=== PATIENT | male | born 1975 | race Caucasian/White ===

== ENCOUNTER 2022-07-07 13:46 | Observation (INO) ==
[2022-07-07] MEDS ORDERED: SODIUM CHLORIDE 0.9% 1000ML 1,000 ML IV ONE ×2 (13:54→19:42)
[2022-07-07] MEDS ORDERED: SODIUM CHLORIDE 0.9% 1000ML 500 ML IV ONE (13:55)
[2022-07-07 14:41] LABS: Hematocrit (blood only) 39.4 % (40.1-51.0); Hemoglobin 13.4 g/dl (14.0-18.0); Mean Corpuscular Hemoglobin 35.2 pg (25.0-34.0); Mean Corpuscular Volume 103.4 fL (80.0-100.0); Mean Platelet Volume 10.6 fL (9.4-12.4); Platelet Count 275 K/uL (130-400); RDW Coefficient of Variation 12.8 % (11.5-14.5); RDW Standard Deviation 48.4 fL (36.4-46.3); Red Blood Count 3.81 M/uL (4.63-6.08); White Blood Count 7.34 K/ul (4.8-10.8)
[2022-07-07 15:06] LABS: Albumin Globulin Ratio 1.2 (0.9-2); Albumin Level 4.2 gm/dl (3.4-5.0); BUN Creatinine Ratio 12.2 (10-20); Bilirubin,Total 0.4 mg/dl (0.2-1.0); Calcium 9.4 mg/dl (8.5-10.1); Creatinine Clr Calc Pharmacy 110.4 ml/min; Est GFR (African American) 105.2 ml/min; Est GFR (Non-African American) 90.8 ml/min; Globulin 3.4 gm/dl (2.5-4.0); Potassium 4.5 mmol/L (3.5-5.1); Total Protein 7.6 gm/dl (6.0-8.3)
--- NOTE | 2022-07-07 15:19 | Emergency Department Note ---
Impression & Plan Abdominal pain, Transaminitis ED Provider Note NAME: ZEB JOHN AGE: 47 SEX: M : 1975 ARRIVES VIA: Walk-In INFORMANT: Patient ED PROVIDER(S): Harrison Liriano DO CHIEF COMPLAINT: abdominal pain HPI: Patient is a 39-year-old male who is an alcoholic that drinks daily for the past 30 years. Patient has been at [facility] for about 4 days ago. He admits to right upper quadrant pain that has been present for the past 2 weeks. It has been having swelling of his belly for the past 7 days or even longer. He has been having some shortness of breath as well with up moving around. Denies any nausea or vomiting. No dysuria, urgency, or frequency. No other exacerbating or remitting factors. ROS: See above HPI for pertinent positives & negatives. A total of 10 systems reviewed and were otherwise negative. PAST MEDICAL HISTORY:See Below PAST SURGICAL HISTORY:See Below FAMILY HISTORY:See Below SOCIAL HISTORY:See Below HOME MEDICATIONS:See Below ALLERGIES:See Below VITALS:See Below PHYSICAL EXAMINATION: GENERAL: Sitting up in bed, alert, chronically ill-appearing, disheveled EYE EXAM: normal conjunctiva. OROPHARYNX:mucous membranes are moist NECK: supple, no nuchal rigidity, no adenopathy, non-tender LUNGS: Clear to auscultation. Normal chest wall mechanics HEART: no murmurs, S1 normal and S2 normal ABDOMEN: abdomen soft, acutely TTP in right upper quadrant, distended abdomen, normo-active bowel sounds, no masses, no rebound or guarding. UPPER EXTREMITIES: upper extremities are grossly normal. LOWER EXTREMITIES: No pitting edema. NEURO EXAM: Normal sensorium, cranial nerves II-XII grossly intact, normal speech, no gross weakness of arms, no gross weakness of legs. MEDICAL DECISION MAKING: Patient is a 47-year-old male who presents ER for above-stated complaint. IV was established blood was obtained. Labs show no significant leukocytosis. No anemia. D-dimer was negative. BMP was unremarkable. T bili was normal. Mild transaminitis. Troponin was negative. Lipase was unremarkable. COVID was negative. He is acutely tender to palpation. CT abdomen pelvis shows prominence of the gallbladder wall and pericholecystic edema. Patient was given IV antibiotics. He was given dose of IV morphine. He was updated bedside. Discussed with general surgery Dr. Mariano brandt who saw and evaluated the patient at bedside. There did not 100% sure that this is his gallbladder and consequently recommended admission to medicine. Discussed with the hospitalist Dr. Foreign Saunders for admission and he will be further worked up from general surgery and the hospitalist service. Triage Nursing notes reviewed. Limited review of prior medical records performed Vital Signs: reviewed and remarkable for HTN Differential diagnosis: Differential diagnoses includes but is not limited to gastritis, peptic ulcer disease, GERD, gallbladder disease, pancreatitis, small bowel obstruction, acute coronary syndrome, pericarditis, ischemic bowel, irritable bowel disease, irritable bowel syndrome, appendicitis, diverticulitis, malignancy, hernia, ur inary tract infection, torsion, perforation, trauma, infectious. ER treatment provided: See below Diagnostics interpreted by me: ECG: none Cardiac Monitoring: An order was placed for continuous cardiac monitoring. The monitor shows a rate of 92 with sinus rhythm. Laboratory studies: As stated above and show below. Imaging studies: CT abdomen pelvis as described above Consultation(s): Patient was seen evaluated by general surgery and has described above Discussed Dr. Saunders for admission and further work-up as general surgery will follow along Procedures: none Critical Care: None Past Med/Surg History Social History Smoking Status: Current every day smoker Feels Safe at Home: Yes Allergies Allergies Allergy/AdvReac Type Severity Reaction Status Date / Time No Known Allergies Allergy Unverified 07/07/22 19:07 Home Meds Home Medications Medication Instructions Recorded Confirmed cyanocobalamin (vitamin B-12) 1,000 mcg PO DAILY 07/07/22 07/07/22 1,000 mcg tablet (Vitamin B-12) diazepam 5 mg tablet (Valium) 5 mg PO .DAILY ON 07/08/22 07/07/22 07/07/22 diazepam 5 mg tablet (Valium) 5 mg PO BID 07/07/22 07/07/22 folic acid 1 mg tablet 1 mg PO DAILY 07/07/22 07/07/22 food supplemt, lactose-reduced 1 ea PO DAILY 07/07/22 07/07/22 (Ensure oral liquid) multivitamin 1 tab PO DAILY 07/07/22 07/07/22 thiamine HCl (vitamin B1) 100 mg 100 mg PO DAILY 07/07/22 07/07/22 tablet Results & Data (ED) Vital Signs Vital Signs - 24 hr 07/07/22 13:51 07/07/22 14:59 07/07/22 18:32 Temperature 36.9 C Temperature Source Oral Pulse Rate 79 Pulse Rate [Left Finger] 72 98 H Pulse Rhythm Regular Pulse Rhythm [Left Finger] Regular Pulse Strength Normal Pulse Strength [Left Finger] Normal Respiratory Rate 16 20 20 Respiratory Effort / Characteristics Non-Labored Spontaneous Non-Labored Spontaneous Respiratory Depth Normal Normal Normal Respiratory Pattern Regular Regular Blood Pressure 161/102 H Blood Pressure [Right Arm] 126/92 127/82 Blood Pressure Mean 121 Blood Pressure Mean [Right Arm] 103 97 Blood Pressure Position Sitting Blood Pressure Position [Right Arm] Sitting Pulse Oximetry 97 97 100 Oxygen Delivery Method Room Air Room Air Room Air Sepsis Recent Fever Within 48 Hours No Sepsis New/Unexplained Change in Mental Status No Sepsis Action Taken by Nursing No Action Required Laboratory Data Result diagrams: 07/07/22 14:26 07/07/22 14:26 Lab Results 07/07/22 07/07/22 07/07/22 Range/Units 14:26 14:26 14:26 WBC 7.34 (4.8-10.8) K/ul RBC 3.81 L (4.63-6.08) M/uL Hgb 13.4 L (14.0-18.0) g/dl Hct 39.4 L (40.1-51.0) % MCV 103.4 H (80.0-100.0) fL MCH 35.2 H (25.0-34.0) pg MCHC 34.0 (32.0-36.0) g/dL RDW Std Deviation 48.4 H (36.4-46.3) fL RDW Coeff of Robby 12.8 (11.5-14.5) % Plt Count 275 (130-400) K/uL MPV 10.6 (9.4-12.4) fL Immature Gran % (Auto) 0.3 % Neut % (Auto) 55.1 % Lymph % (Auto) 32.3 % [place] % (Auto) 8.2 % Eos % (Auto) 2.6 % Baso % (Auto) 1.5 % Neut # (Auto) 4.05 (1.4-6.5) K/uL Lymph # (Auto) 2.37 (1.2-3.4) K/uL [place] # (Auto) 0.60 (0.24-0.82) K/uL Eos # (Auto) 0.19 (0-0.50) K/uL Baso # (Auto) 0.11 (0-0.2) K/uL Immature Gran # (Auto) 0.02 (0.00-0.02) K/uL PT (9.0-12.0) Seconds INR (0.9-1.1) D-Dimer (0-500) ug/L FEU Sodium 138 (136-145) mmol/L Potassium 4.5 (3.5-5.1) mmol/L Chloride 106 (98-107) mmol/L Carbon Dioxide 24 (21-32) mmol/L Anion Gap 8 (3-11) BUN 12 (6-23) mg/dl Creatinine 0.98 (0.6-1.4) mg/dl Est Cr Clr Drug Dosing 110.4 ml/min Est GFR ( Amer) 105.2 ml/min Est GFR (Non-Af Amer) 90.8 ml/min BUN/Creatinine Ratio 12.2 (10-20) Glucose 94 (70-99(Fasting)) mg/dl Calcium 9.4 (8.5-10.1) mg/dl Magnesium (1.7-2.4) mg/dl Total Bilirubin 0.4 (0.2-1.0) mg/dl AST 45 H (13-39) U/L ALT 60 H (7-52) U/L Alkaline Phosphatase 60 (34-104) U/L Troponin I High Sens 4.5 (0-20) pg/ml Total Protein 7.6 (6.0-8.3) gm/dl Albumin 4.2 (3.4-5.0) gm/dl Globulin 3.4 (2.5-4.0) gm/dl Albumin/Globulin Ratio 1.2 (0.9-2) Lipase 63 (11-82) U/L SARS-CoV-2, RNA, NAAT (NEGATIVE) 07/07/22 07/07/22 07/07/22 Range/Units 14:26 15:38 18:30 WBC (4.8-10.8) K/ul RBC (4.63-6.08) M/uL Hgb (14.0-18.0) g/dl Hct (40.1-51.0) % MCV (80.0-100.0) fL MCH (25.0-34.0) pg MCHC (32.0-36.0) g/dL RDW Std Deviation (36.4-46.3) fL RDW Coeff of Robby (11.5-14.5) % Plt Count (130-400) K/uL MPV (9.4-12.4) fL Immature Gran % (Auto) % Neut % (Auto) % Lymph % (Auto) % [place] % (Auto) % Eos % (Auto) % Baso % (Auto) % Neut # (Auto) (1.4-6.5) K/uL Lymph # (Auto) (1.2-3.4) K/uL [place] # (Auto) (0.24-0.82) K/uL Eos # (Auto) (0-0.50) K/uL Baso # (Auto) (0-0.2) K/uL Immature Gran # (Auto) (0.00-0.02) K/uL PT 9.8 (9.0-12.0) Seconds INR 0.9 (0.9-1.1) D-Dimer 260 (0-500) ug/L FEU Sodium (136-145) mmol/L Potassium (3.5-5.1) mmol/L Chloride (98-107) mmol/L Carbon Dioxide (21-32) mmol/L Anion Gap (3-11) BUN (6-23) mg/dl Creatinine (0.6-1.4) mg/dl Est Cr Clr Drug Dosing ml/min Est GFR ( Amer) ml/min Est GFR (Non-Af Amer) ml/min BUN/Creatinine Ratio (10-20) Glucose (70-99(Fasting)) mg/dl Calcium (8.5-10.1) mg/dl Magnesium 2.3 (1.7-2.4) mg/dl Total Bilirubin (0.2-1.0) mg/dl AST (13-39) U/L ALT (7-52) U/L Alkaline Phosphatase (34-104) U/L Troponin I High Sens (0-20) pg/ml Total Protein (6.0-8.3) gm/dl Albumin (3.4-5.0) gm/dl Globulin (2.5-4.0) gm/dl Albumin/Globulin Ratio (0.9-2) Lipase (11-82) U/L SARS-CoV-2, RNA, NAAT NEGATIVE (NEGATIVE) Administered Medications Discontinued Medications Sodium Chloride (Nss 1000ml) 1,000 mls @ 999 mls/hr IV .Q1H1M ONE Stop: 07/07/22 14:54 Last Admin: 07/07/22 15:24 Dose: Not Given Documented By: CARMELO Sodium Chloride (Nss 1000ml) 500 mls @ 999 mls/hr IV .Q31M ONE Stop: 07/07/22 14:25 Last Infusion: 07/07/22 16:24 Dose: 0 mls/hr Documented By: Admin: 07/07/22 15:24 Dose: 999 mls/hr Documented By: CARMELO Cefoxitin Sodium (Mefoxin) 2,000 mg in 60 mls @ 100 mls/hr IV NOW STA Stop: 07/07/22 18:17 Last Infusion: 07/07/22 18:44 Dose: 0 mls/hr Documented By: Admin: 07/07/22 18:08 Dose: 100 mls/hr Documented By: MC Ioversol (Optiray 350 100ml) 89 ml IV ONCE ONE Stop: 07/07/22 16:57 Last Admin: 07/07/22 16:57 Dose: 89 ml Documented By: KENDALL Morphine Sulfate (Morphine Sulfate 4 Mg/Ml 1 Ml Carp\Vial) 4 mg IV NOW STA Stop: 07/07/22 15:58 Last Admin: 07/07/22 18:22 Dose: Not Given Documented By: CARMELO Morphine Sulfate (Morphine Sulfate 10 Mg/Ml Carp/Vial) 6 mg IV NOW STA Stop: 07/07/22 17:43 Last Admin: 07/07/22 18:08 Dose: 6 mg Documented By: MC Ondansetron HCl (Ondansetron Inj 2 Mg/Ml 2 Ml Vial) 4 mg IV NOW STA Stop: 07/07/22 17:43 Last Admin: 07/07/22 18:08 Dose: 4 mg Documented By: MC Imaging Data Radiologist's Impression: Chest X-Ray 07/07/22 15:15 XR chest 1V portable CLINICAL HISTORY: sob TECHNIQUE: Single frontal radiograph of the chest was obtained. Comparison: None available at the time of this dictation. FINDINGS: No lines and tubes are seen. The cardiomediastinal silhouette is normal. Bibasilar atelectasis is noted. No evidence of pleural effusion or pneumothorax. IMPRESSION: Bibasilar atelectasis without evidence of pneumonia or pulmonary edema. ACT 112: Negative or not required by law. Electronically signed by: Obie Cruz M.D. 07/07/2022 4:05 PM Abdomen/Pelvis CT 07/07/22 16:27 CT abd pelvis IV con only CLINICAL HISTORY: abd pain swelling TECHNIQUE: Helical axial images of the abdomen and pelvis were obtained and displayed. Automated dose lowering techniques and/or adjustment according to patient size were utilized for this exam. This exam was performed with intravenous contrast. CT DOSE: 1008.95 mGy.cm COMPARISON: None available at the time of this dictation. FINDINGS: Lower chest: Bibasilar atelectasis versus scarring is seen. Liver: Subcentimeter hypodensities in the liver are too small to characterize. Gallbladder and biliary tree: There is minimal prominence of the gallbladder wall with the faint suggestion of pericholecystic edema. No intra- or extrahepatic biliary ductal dilation. Pancreas: Unremarkable, no focal lesions. Spleen: Unremarkable. Adrenals: Unremarkable. Kidneys and ureters: Unremarkable. Bladder: Limited evaluation due to underdistention. Reproductive organs: Unremarkable. Bowel: Unremarkable appearance of the bowel. The appendix is normal. Lymph nodes Retroperitoneal: Unremarkable. Pelvic: Unremarkable. Mesenteric: Unremarkable. Peritoneum: Normal. Vessels: Atherosclerotic calcifications are seen. Abdominal wall: Unremarkable. Bones: Degenerative changes in the visualized spine. IMPRESSION: There is questionable prominence of the gallbladder wall and trace pericholecystic edema. Findings are equivocal for acute cholecystitis. If there is clinical concern, right upper quadrant ultrasound or nuclear medicine HIDA scan can be performed. Otherwise no acute abnormalities are seen. ACT 112: Negative or not required by law. Electronically signed by: Obie Cruz M.D. 07/07/2022 5:39 PM Discharge Plan Visit Data Chief Complaint: Flank Pain Stated Complaint: ABD SWELLING AND R SIDE PAIN ED Provider: Harrison Liriano Discharge Problem: Abdominal pain, Transaminitis Forms Stand Alone Forms: My [facility] Prescriptions Prescriptions: No Action multivitamin Tablet 1 tab PO DAILY cyanocobalamin (vitamin B-12) [Vitamin B-12] 1,000 mcg Tablet 1,000 mcg PO DAILY thiamine HCl (vitamin B1) 100 mg Tablet 100 mg PO DAILY folic acid 1 mg Tablet 1 mg PO DAILY diazepam [Valium] 5 mg Tablet 5 mg PO BID Rx Instructions: 5 mg bid for 07/07/22, 5 mg for 07/08 then dc diazepam [Valium] 5 mg Tablet 5 mg PO .DAILY ON 07/08/22 Rx Instructions: crush, watch for sedation Ensure Liquid 1 ea PO DAILY Referrals Referrals: PCP,NO [Primary Care Provider] -
[2022-07-07 15:35] LABS: Basophils # (auto) 0.11 K/uL (0-0.2); Basophils % (auto) 1.5 %; Eosinophils # (auto) 0.19 K/uL (0-0.50); Eosinophils % (auto) 2.6 %; Immature Granulocytes # (auto) 0.02 K/uL (0.00-0.02); Immature Granulocytes % (auto) 0.3 %; Lymphocytes # (auto) 2.37 K/uL (1.2-3.4); Lymphocytes % (auto) 32.3 %; Monocytes % (auto) 8.2 %; Neutrophils # (auto) 4.05 K/uL (1.4-6.5); Neutrophils % (auto) 55.1 %
[2022-07-07] MEDS ORDERED: MoRPHine SULFATE 4 MG/ML 1 ML CARP\\VIAL IV STA (15:57)
--- NOTE | 2022-07-07 16:07 | XRay Report ---
XR chest 1V portable CLINICAL HISTORY: sob TECHNIQUE: Single frontal radiograph of the chest was obtained. Comparison: None available at the time of this dictation. FINDINGS: No lines and tubes are seen. The cardiomediastinal silhouette is normal. Bibasilar atelectasis is not ed. No evidence of pleural effusion or pneumothorax. IMPRESSION: Bibasilar atelectasis without evidence of pneumonia or pulmonary edema. ACT 112: Negative or not required by law. Electronically signed by: Obie Cruz M.D. 07/07/2022 4:05 PM
[2022-07-07 16:16] LABS: D Dimer 260 ug/L FEU (0-500); INR 0.9 (0.9-1.1); Prothrombin Time 9.8 Seconds (9.0-12.0)
[2022-07-07] MEDS ORDERED: OPTIRAY 350 100ml IV ONE (16:56)
--- NOTE | 2022-07-07 17:41 | CT Scan Report ---
CT abd pelvis IV con only CLINICAL HISTORY: abd pain swelling TECHNIQUE: Helical axial images of the abdomen and pelvis were obtained and displayed. Automated dose lowering techniques and/or adjustment according to patient size were utilized for this exam. This e xam was performed with intravenous contrast. CT DOSE: 1008.95 mGy.cm COMPARISON: None available at the time of this dictation. FINDINGS: Lower chest: Bibasilar atelectasis versus scarring is seen. Liver: Subcentimeter hypodensities in the liver are too small to characterize. Gallbladder and biliary tree: There is minimal prominence of the gallbladder wall with the faint sugg estion of pericholecystic edema. No intra- or extrahepatic biliary ductal dilation. Pancreas: Unremarkable, no focal lesions. Spleen: Unremarkable. Adrenals: Unremarkable. Kidneys and ureters: Unremarkable. Bladder: Limited evaluation due to underdistention. Reproductive organs: Unremarkable. Bowel: Unremarkable appearance of the bowel. The appendix is normal. Lymph nodes Retroperitoneal: Unremarkable. Pelvic: Unremarkable. Mesenteric: Unremarkable. Peritoneum: Normal. Vessels: Atherosclerotic calcifications are seen. Abdominal wall: Unremarkable. Bones: Degenerative changes in the visualized spine. IMPRESSION: There is questionable prominence of the gallbladder wall and trace pericholecystic edema. Findings ar e equivocal for acute cholecystitis. If there is clinical concern, right upper quadrant ultrasound or nuclear medicine HIDA scan can be performed. Otherwise no acute abnormalities are seen. ACT 112: Negative or not required by law. Electronically signed by: Obie Cruz M.D. 07/07/2022 5:39 PM
[2022-07-07] MEDS ORDERED: cefOXitin 2,000 MG/60 ML BAG IV STA (17:42)
[2022-07-07] MEDS ORDERED: MoRPHine SULFATE 10 MG/ML CARP/VIAL IV STA (17:42)
[2022-07-07] MEDS ORDERED: ONDANSETRON INJ 2 MG/ML 2 ML VIAL IV STA (17:42)
--- NOTE | 2022-07-07 19:39 | Surgery Consultation ---
Date of Consultation July 07, 2022 Assessment & Plan (1) Abdominal pain: I discussed with the treating emergency room physician and he is having the hospitalist admit the patient secondary to his abdominal pain. It is unclear if the gallbladder is responsible for the patient's abdominal pain. The patient CT scan is not overly convincing for cholecystitis. We will therefore order a HIDA scan for further evaluation. Another note of concern is the patient's increased abdominal girth coupled with his history of alcohol use raising the concern for other etiologies of patient's abdominal pain. We will await the results of HIDA scan before determine if patient would benefit from a cholecystectomy. Additional recommendations be forthcoming based on results of HIDA scan and his clinical course as it unfolds. Supervising Physician Co-Signing Physician Notes As per Justin Vazquez physician assistant front desk manager Stas's primary problem at this time is emotional distress The gallbladder does not appear to be an issue we will document whether or not this is acute cholecystitis by getting a hepatobiliary scan Patient is convinced that taking out his gallbladder will take care of all his problems unfortunately that is not going to be the case I wish it would be the case for his benefit History of Present Illness Reason for Consultation: Abdominal pain Attending Physician: This is a 47-year-old male who presented to the emergency department secondary to abdominal pain. Patient notes that the pain is primarily located in the right upper quadrant and has been present for at least 2 weeks. Patient does not note any modifying factors but he specifically notes that he does not seem to have any postprandial pain. He denies any nausea or vomiting. He denies any fevers, shakes, or chills. The patient does note that he has noted an increase in size of abdominal girth the past 2 weeks. He was unable to quantify the exact amount that his abdominal girth has increased however. He notes that he has not eaten much in the past 24 hours. He denies any prior abdominal surgeries. The patient does report that he has a history of heavy alcohol use for the past 30 years and he is currently in an alcohol rehab program. He notes that he has not had an alcoholic beverage in approximately 2 weeks. He denies any prior abdominal surgeries but does note that both his mother and father did undergo cholecystectomy. Since arrival to the hospital the patient has had labs and imaging which I independent reviewed. Chest x-ray showed no evidence of pneumonia. A CT scan of the abdomen and pelvis showed minimal prominence of the gallbladder with some faint pericholecystic edema. There is no biliary ductal dilatation. There is no convincing evidence of cholecystitis. Labs include a CBC her white blood cell count and platelet count were normal. Hemoglobin and hematocrit were 13.4 and 39.4. Coagulation studies were noted to be normal including an INR of 0.9. Chemistry profile showed sodium, potassium, BUN, and creatinine were all normal. His total bilirubin was nonelevated. His AST and ALT were elevated at 45 and 60. Alkaline phosphatase was also normal. Lipase was nonelevated. A COVID test was negative. At the time of my interview the patient did have abdominal discomfort but he was in no distress. Allergies Allergy/AdvReac Type Severity Reaction Status Date / Time No Known Allergies Allergy Unverified 07/07/22 19:07 Home Medications Medication Instructions Recorded Confirmed Type cyanocobalamin (vitamin B-12) 1,000 mcg PO DAILY 07/07/22 07/07/22 History 1,000 mcg tablet (Vitamin B-12) diazepam 5 mg tablet (Valium) 5 mg PO .DAILY ON 07/08/22 07/07/22 07/07/22 History diazepam 5 mg tablet (Valium) 5 mg PO BID 07/07/22 07/07/22 History folic acid 1 mg tablet 1 mg PO DAILY 07/07/22 07/07/22 History food supplemt, lactose-reduced 1 ea PO DAILY 07/07/22 07/07/22 History (Ensure oral liquid) multivitamin 1 tab PO DAILY 07/07/22 07/07/22 History thiamine HCl (vitamin B1) 100 mg 100 mg PO DAILY 07/07/22 07/07/22 History tablet Patient History Social History Smoking Status: Current every day smoker Cigarettes Per Day: 1.5 PPD; Second Hand Exposure: No; Do You Dip or Chew Tobacco: No; Tobacco Cessation Education Requested by Patient: No Hx Alcohol Use: Yes Alcohol type: hard liquor Preferred Language: Icelandic Communication Ability: Effective Marketing Executive Required: No Beliefs That Will Affect Care: None Current Living Situation: Alone Current Living Situation Comment: Lives at home alone in [facility] but has been at [facility] Other Information That Helps Us Care for You: No Feels Safe at Home: Yes Safety Concerns: Feels Safe At This Time Assistive Devices: Brace/Splint/Immobilizer, Denture - Upper and Glasses Review of Systems Constitutional: no fever and no chills Eyes: no eye pain Ear, Nose, Mouth, Throat: no ear pain Respiratory: no cough and no dyspnea Cardiovascular: no chest pain Gastrointestinal: + abdominal pain Genitourinary: no dysuria Musculoskeletal: no back pain Integumentary: no rash Neurologic: no localized weakness Physical Exam Constitutional: WD/WN, vitals as above Eyes: no conjunctival abnormality ENMT: Ears: no hearing impairment and no external ear abnormality Mouth: no oropharynx abnormality Neck: trachea midline Respiratory: normal respiratory effort; no respiratory distress and no labored breathing Cardiovascular: Rate/Rhythm: regular rate and regular rhythm Gastrointestinal (Abdomen): Abdomen is rotund with moderate distention. There is no rebound tenderness or guarding but pain was noted in a generalized fashion throughout the patient's abdomen with palpation. Musculoskeletal: No calf tenderness Skin: no rashes Neurologic: moves all extremities Psychiatric: Orientation: alert and oriented x 3 Affect: + anxious affect Results & Data ([facility]) Vital Signs (Past 12 Hours) Vital Signs Temp Pulse Pulse Resp BP BP Pulse Ox 07/07/22 18:32 98 H 20 127/82 100 07/07/22 14:59 72 20 126/92 97 07/07/22 13:51 36.9 C 79 16 161/102 H 97 O2 Del Method 07/07/22 18:32 Room Air 07/07/22 14:59 Room Air 07/07/22 13:51 Room Air PG Care Time/CCT Total # of Minutes Spent Total Time Spent with Patient: Total time spent is greater than 50% in coordination of care (as documented) at patient's floor/unit and/or counseling patient: Coding Level of Care Code 36347 Inpt Consult Level 5 Diagnoses Abdominal pain R10.9
[2022-07-07] MEDS ORDERED: KETOROLAC TROMETHAMINE 15 MG/ML VIAL IV ONE (20:07)
[2022-07-07] MEDS ORDERED: KETOROLAC TROMETHAMINE 15 MG/ML VIAL ONE (20:11)
--- NOTE | 2022-07-07 20:57 | History & Physical Report ---
Date of Service July 07, 2022 Assessment & Plan (1) Abdominal pain: Plan: Rule out cholecystitis No sepsis for now hx ADD, currently not on maintenance medications Alcoholic hepatitis, good Madrey DF score given normal PT and bilirubin anxiety disorder Anemia, unknown duration hx alcohol/tobacco abuse Exertional shortness of breath for a number of years likely COPD F Surgery consult Re: Possible cholecystitis (Patient already seen by provider at the ER. HIDA scan recommended given equivocal findings cholecystitis on imaging.) Hold off antibiotics until cholecystitis definitively ruled out Judicious narcotic use given possible drug-seeking behavior as per outpatient provider note. Outpatient PFTs Nicotine patch as needed DVT prophylaxis. SCDs Re: Possible procedure Full code Text document was generated using [employer] voice recognition software. It may contain grammatical or spelling errors. Kindly contact undersigned for clarification of any documentation item in question. History of Present Illness Chief Complaint: Abdominal pain Primary Care Provider: Dr. Matthews from [place], [place] History obtained from patient and records. Medical history significant for ADD, anxiety disorder, history of alcohol withdrawal seizures, alcohol, and tobacco abuse. Patient is a resident of [place], [place] who is in town for alcohol rehab the last 2 days after confinement at a hospital in [facility] for alcohol withdrawal. Patient has had intermittent right upper quadrant pain symptoms for almost a year now. Sometimes related to eating, sometimes not. Progressive abdominal distention as per patient. Patient claims a weight gain of 50 pounds in a few months time. No chest pain. No unusual leg swelling. Shortness of breath on exertion in the last 2 years. Worsening right-sided abdominal discomfort in the last 2 weeks. Patient claims he told [place] physicians about problems during confinement. CAT scan of the belly from [facility] confinement was negative as per patient. Worsening discomfort since arrival at the local [facility] 2 days ago. Patient especially distressed by his 'sagging' belly. No nausea, no vomiting, no fever, no chills. Addiction center provider concerned about drug-seeking behavior given patient behavior and conflicting stories. Patient sent to ER for evaluation. IV Cefoxitin administered at the ER Medical History as above Surgical History : Knee surgery Family History : Lung cancer, alcoholism, DM, gallbladder disease Personal/Social history : 1.5 pack daily, alcohol abuse, former work in a factory Allergies Allergy/AdvReac Type Severity Reaction Status Date / Time No Known Allergies Allergy Unverified 07/07/22 19:07 Home Medications Medication Instructions Recorded Confirmed Type cyanocobalamin (vitamin B-12) 1,000 mcg PO DAILY 07/07/22 07/07/22 History 1,000 mcg tablet (Vitamin B-12) diazepam 5 mg tablet (Valium) 5 mg PO .DAILY ON 07/08/22 07/07/22 07/07/22 History diazepam 5 mg tablet (Valium) 5 mg PO BID 07/07/22 07/07/22 History folic acid 1 mg tablet 1 mg PO DAILY 07/07/22 07/07/22 History food supplemt, lactose-reduced 1 ea PO DAILY 07/07/22 07/07/22 History (Ensure oral liquid) multivitamin 1 tab PO DAILY 07/07/22 07/07/22 History thiamine HCl (vitamin B1) 100 mg 100 mg PO DAILY 07/07/22 07/07/22 History tablet Past Med/Surg History Social History Smoking Status: Current every day smoker Cigarettes Per Day: 1.5 PPD; Second Hand Exposure: No; Do You Dip or Chew Tobacco: No; Tobacco Cessation Education Requested by Patient: No Hx Alcohol Use: Yes Alcohol type: hard liquor Preferred Language: Tajik Communication Ability: Effective Gyroscope Technician Required: No Beliefs That Will Affect Care: None marital status: Current Living Situation: Alone Current Living Situation Comment: Lives at home alone in [facility] but has been at [facility] for rehab Other Information That Helps Us Care for You: No Feels Safe at Home: Yes Safety Concerns: Feels Safe At This Time Assistive Devices: None Review of Systems Review of Systems: As per HPI, all other systems reviewed and negative Physical Exam Physical Exam: GENERAL: Anxious, episodic stuttering, obese, no respiratory distress SKIN: Normal color, warm HEENT: [place] palpebral conjunctivae, no ptosis, dry buccal mucosa NECK : Supple, no tenderness CHEST : CTA, no tenderness HEART : RRR, no obvious murmurs ABDOMEN: Abdominal distention, right-sided abdominal tenderness EXTREMITIES : Minimal LE swelling, no LE tenderness, no other conspicuous deformities noted NEUROLOGIC : Coherent, no facial asymmetry, no other gross focality Results & Data Results & Data ([facility]) Vital Signs (Past 12 Hours) Vital Signs Temp Pulse Pulse Resp BP BP Pulse Ox 07/07/22 18:32 98 H 20 127/82 100 07/07/22 14:59 72 20 126/92 97 07/07/22 13:51 36.9 C 79 16 161/102 H 97 O2 Del Method 07/07/22 18:32 Room Air 07/07/22 14:59 Room Air 07/07/22 13:51 Room Air Laboratory Results Laboratory Results WBC 7.34 K/ul (4.8-10.8) 07/07/22 14: RBC 3.81 M/uL (4.63-6.08) L 07/07/22 14:26 Hgb 13.4 g/dl (14.0-18.0) L 07/07/22 14: Hct 39.4 % (40.1-51.0) L 07/07/22 14: MCV 103.4 fL (80.0-100.0) H 07/07/22 14: MCH 35.2 pg (25.0-34.0) H 07/07/22 14: MCHC 34.0 g/dL (32.0-36.0) 07/07/22 14:26 RDW Std Deviation 48.4 fL (36.4-46.3) H 07/07/22 14: RDW Coeff of Robby 12.8 % (11.5-14.5) 07/07/22 14: Plt Count 275 K/uL (130-400) 07/07/22 14: MPV 10.6 fL (9.4-12.4) 07/07/22 14: Immature Gran % (Auto) 0.3 % 07/07/22 14: Neut % (Auto) 55.1 % 07/07/22 14:26 Lymph % (Auto) 32.3 % 07/07/22 14: [place] % (Auto) 8.2 % 07/07/22 14: Eos % (Auto) 2.6 % 07/07/22 14: Baso % (Auto) 1.5 % 07/07/22 14: Neut # (Auto) 4.05 K/uL (1.4-6.5) 07/07/22 14: Lymph # (Auto) 2.37 K/uL (1.2-3.4) 07/07/22 14:26 [place] # (Auto) 0.60 K/uL (0.24-0.82) 07/07/22 14:26 Eos # (Auto) 0.19 K/uL (0-0.50) 07/07/22 14:26 Baso # (Auto) 0.11 K/uL (0-0.2) 07/07/22 14:26 Immature Gran # (Auto) 0.02 K/uL (0.00-0.02) 07/07/22 14:26 PT 9.8 Seconds (9.0-12.0) 07/07/22 15:38 INR 0.9 (0.9-1.1) 07/07/22 15:38 D-Dimer 260 ug/L FEU (0-500) 07/07/22 15:38 Sodium 138 mmol/L (136-145) 07/07/22 14:26 Potassium 4.5 mmol/L (3.5-5.1) 07/07/22 14:26 Chloride 106 mmol/L (98-107) 07/07/22 14:26 Carbon Dioxide 24 mmol/L (21-32) 07/07/22 14:26 Anion Gap 8 (3-11) 07/07/22 14:26 BUN 12 mg/dl (6-23) 07/07/22 14:26 Creatinine 0.98 mg/dl (0.6-1.4) 07/07/22 14:26 Est Cr Clr Drug Dosing 110.4 ml/min 07/07/22 14:26 Est GFR ( Amer) 105.2 ml/min 07/07/22 14:26 Est GFR (Non-Af Amer) 90.8 ml/min 07/07/22 14:26 BUN/Creatinine Ratio 12.2 (10-20) 07/07/22 14:26 Glucose 94 mg/dl (70-99(Fasting)) 07/07/22 14:26 Calcium 9.4 mg/dl (8.5-10.1) 07/07/22 14:26 Magnesium 2.3 mg/dl (1.7-2.4) 07/07/22 14:26 Total Bilirubin 0.4 mg/dl (0.2-1.0) 07/07/22 14:26 AST 45 U/L (13-39) H 07/07/22 14:26 ALT 60 U/L (7-52) H 07/07/22 14:26 Alkaline Phosphatase 60 U/L (34-104) 07/07/22 14:26 Troponin I High Sens 4.5 pg/ml (0-20) 07/07/22 14:26 Total Protein 7.6 gm/dl (6.0-8.3) 07/07/22 14: Albumin 4.2 gm/dl (3.4-5.0) 07/07/22 14:26 Globulin 3.4 gm/dl (2.5-4.0) 07/07/22 14: Albumin/Globulin Ratio 1.2 (0.9-2) 07/07/22 14:26 Lipase 63 U/L (11-82) 07/07/22 14:26 SARS-CoV-2, RNA, NAAT NEGATIVE (NEGATIVE) 07/07/22 18:30 Impressions Chest X-Ray 07/07/22 15:15 XR chest 1V portable CLINICAL HISTORY: sob TECHNIQUE: Single frontal radiograph of the chest was obtained. Comparison: None available at the time of this dictation. FINDINGS: No lines and tubes are seen. The cardiomediastinal silhouette is normal. Bibasilar atelectasis is noted. No evidence of pleural effusion or pneumothorax. IMPRESSION: Bibasilar atelectasis without evidence of pneumonia or pulmonary edema. ACT 112: Negative or not required by law. Electronically signed by: Obie Cruz M.D. 07/07/2022 4:05 PM Abdomen/Pelvis CT 07/07/22 16:27 CT abd pelvis IV con only CLINICAL HISTORY: abd pain swelling TECHNIQUE: Helical axial images of the abdomen and pelvis were obtained and displayed. Automated dose lowering techniques and/or adjustment according to patient size were utilized for this exam. This exam was performed with intravenous contrast. CT DOSE: 1008.95 mGy.cm COMPARISON: None available at the time of this dictation. FINDINGS: Lower chest: Bibasilar atelectasis versus scarring is seen. Liver: Subcentimeter hypodensities in the liver are too small to characterize. Gallbladder and biliary tree: There is minimal prominence of the gallbladder wall with the faint suggestion of pericholecystic edema. No intra- or extrahepatic biliary ductal dilation. Pancreas: Unremarkable, no focal lesions. Spleen: Unremarkable. Adrenals: Unremarkable. Kidneys and ureters: Unremarkable. Bladder: Limited evaluation due to underdistention. Reproductive organs: Unremarkable. Bowel: Unremarkable appearance of the bowel. The appendix is normal. Lymph nodes Retroperitoneal: Unremarkable. Pelvic: Unremarkable. Mesenteric: Unremarkable. Peritoneum: Normal. Vessels: Atherosclerotic calcifications are seen. Abdominal wall: Unremarkable. Bones: Degenerative changes in the visualized spine. IMPRESSION: There is questionable prominence of the gallbladder wall and trace pericholecystic edema. Findings are equivocal for acute cholecystitis. If there is clinical concern, right upper quadrant ultrasound or nuclear medicine HIDA scan can be performed. Otherwise no acute abnormalities are seen. ACT 112: Negative or not required by law. Electronically signed by: Obie Cruz M.D. 07/07/2022 5:39 PM Diagnostic Findings EKG as per my interpretation : Rate 60, NSR, normal axis, no ischemia
[2022-07-07] MEDS: oxyCODONE HCL IR 5 MG TAB (IMMEDIATE RELEASE) PO PRN (21:20)
[2022-07-07] MEDS: MoRPHine SULFATE 4 MG/ML 1 ML CARP\\VIAL IV PRN (23:10)
[2022-07-07] MEDS: hydrOXYzine HCl 10 MG TAB PO PRN (23:32)
[2022-07-07] MEDS ORDERED: NICOTINE 21 MG/24 HR TDSY TD STA (23:46)
[2022-07-08] MEDS: NICOTINE 21 MG/24 HR TDSY TD SCH ×2 (01:03→08:46)
[2022-07-08] MEDS: oxyCODONE HCL IR 5 MG TAB (IMMEDIATE RELEASE) PO PRN ×4 (01:44→20:21)
--- NOTE | 2022-07-08 05:02 | Surgery Progress Note ---
Date of Service July 08, 2022 Assessment & Plan (1) Abdominal pain: Plan: The etiology of patient's abdominal pain has not been ascertained. To ascertain whether or not patient's abdominal pain is due to cholecystitis a HIDA scan has been ordered which is pending We will await results of his HIDA scan before determining if surgical intervention will be undertaken . Admission and Anticipated Discharge Date Admission Date: July 07, 2022 Supervising Physician Co-Signing Physician Notes As per Justin Vazquez physician boilermaker's assistant Patient emotional status appears to be the primary problem Awaiting hepatobiliary scan Subjective Patient is resting in bed at the present time. He continues to complain of abdominal discomfort greatest in the upper abdomen particularly in the right upper quadrant. He denies any nausea or vomiting. Discussed with nurse that patient is scheduled for HIDA scan. The patient is reluctant to take any pain medications as he feels this will affect his HIDA scan. I did explain to him that medication such as Toradol or acetaminophen would unlikely affect his HIDA scan but again he does not wish to take any pain medications at this time. Physical Exam Gastrointestinal (Abdomen): Abdomen is distended with hypoactive bowel sounds. The patient did complain of pain with palpation greatest in the right upper quadrant. Results & Data ([facility]) Vital Signs (Past 12 Hours) Vital Signs Temp Pulse Resp BP Pulse Ox O2 Del Method 07/07/22 23:38 36.8 C 70 18 126/87 94 Room Air 07/07/22 18:32 98 H 20 127/82 100 Room Air PG Care Time/CCT Total # of Minutes Spent Total Time Spent with Patient: Total time spent is greater than 50% in coordination of care (as documented) at patient's floor/unit and/or counseling patient: Coding Level of Care Code 90015 Subseq Hosp Care Lvl 1 Diagnoses Abdominal pain R10.9
[2022-07-08] MEDS: KETOROLAC TROMETHAMINE 15 MG/ML VIAL IV PRN ×3 (05:04→22:34)
[2022-07-08] MEDS: hydrOXYzine HCl 10 MG TAB PO PRN (06:40)
[2022-07-08] MEDS: ACETAMINOPHEN 500 MG TAB PO PRN ×2 (06:40→13:15)
--- NOTE | 2022-07-08 07:11 | Electrocardiogram Report ---
Test Reason : Blood Pressure : / mmHG Vent. Rate : 062 BPM Atrial Rate : 062 BPM P-R Int : 170 ms QRS Dur : 092 ms QT Int : 390 ms P-R-T Axes : 031 011 029 degrees QTc Int : 395 ms Normal sinus rhythm Normal ECG No previous ECGs available Confirmed by Francis Alvarez ([id number]) on 07/08/2022 7:11:28 AM Referred By: REFERRED SELF Confirmed By:Rahul Alvarez
[2022-07-08 07:45] LABS: Hematocrit (blood only) 40.3 % (40.1-51.0); Hemoglobin 13.9 g/dl (14.0-18.0); Mean Corpuscular Hemoglobin 35.3 pg (25.0-34.0); Mean Corpuscular Hgb Conc 34.5 g/dL (32.0-36.0); Mean Corpuscular Volume 102.3 fL (80.0-100.0); Mean Platelet Volume 10.5 fL (9.4-12.4); Platelet Count 251 K/uL (130-400); RDW Coefficient of Variation 12.5 % (11.5-14.5); RDW Standard Deviation 46.8 fL (36.4-46.3); Red Blood Count 3.94 M/uL (4.63-6.08); White Blood Count 6.61 K/ul (4.8-10.8)
[2022-07-08 08:03] LABS: Basophils # (auto) 0.12 K/uL (0-0.2); Basophils % (auto) 1.8 %; Eosinophils # (auto) 0.18 K/uL (0-0.50); Eosinophils % (auto) 2.7 %; Immature Granulocytes # (auto) 0.02 K/uL (0.00-0.02); Immature Granulocytes % (auto) 0.3 %; Lymphocytes # (auto) 2.84 K/uL (1.2-3.4); Monocytes # (auto) 0.54 K/uL (0.24-0.82); Monocytes % (auto) 8.2 %; Neutrophils # (auto) 2.91 K/uL (1.4-6.5)
[2022-07-08 08:16] LABS: Albumin Globulin Ratio 1.3 (0.9-2); Albumin Level 3.8 gm/dl (3.4-5.0); BUN Creatinine Ratio 12.7 (10-20); Bilirubin,Total 0.8 mg/dl (0.2-1.0); Calcium 8.7 mg/dl (8.5-10.1); Creatinine Clr Calc Pharmacy 106.1 ml/min; Est GFR (African American) 100.3 ml/min; Est GFR (Non-African American) 86.5 ml/min; Potassium 4.4 mmol/L (3.5-5.1); Total Protein 6.8 gm/dl (6.0-8.3)
[2022-07-08] MEDS: THIAMINE HCL 100 MG TAB PO SCH (08:46)
[2022-07-08] MEDS: CYANOCOBALAMIN (B-12) 500 MCG TABLET PO SCH (08:46)
[2022-07-08] MEDS: MoRPHine SULFATE 4 MG/ML 1 ML CARP\\VIAL IV PRN ×2 (08:46→17:03)
[2022-07-08] MEDS: diazePAM 5 MG TABLET PO SCH ×2 (08:46→20:21)
[2022-07-08] MEDS: FOLIC ACID 1 MG TAB PO SCH (08:46)
[2022-07-08] MEDS: MULTIVITAMIN TAB PO SCH (08:47)
[2022-07-08] MEDS: SODIUM CHLORIDE 0.9% 1000ML 1,000 ML IV SCH ×2 (08:54→23:53)
[2022-07-08] MEDS ORDERED: SODIUM CHLORIDE 0.9% 1000ML 1,000 ML IV SCH (11:15)
--- NOTE | 2022-07-08 13:49 | Hospitalist Progress Note ---
Date of Service July 08, 2022 Assessment & Plan (1) Abdominal pain: Plan 47-year-old man with PMH of ADD, anxiety disorder, alcohol withdrawal seizure, alcohol and tobacco abuse who is a resident of [facility] and is in alcohol rehab for the last 2 days and this time presented with a complaint of intermittent right upper quadrant pain symptoms for almost a year now which has been worsening in the last [address] [employer] He reports the pain is sometimes related to eating and sometimes not. He also reports progressive abdominal distention. He claims he gained 50 pounds of weight in the last few months. He denies nausea or vomiting or fever or chills at presentation. Addiction Center provider concerned about drug-seeking behavior given patient behavior and conflicting stories per admitting note. Is being managed for the following: Intermittent RUQ abdominal pain, worsening lately Likely acute cholecystitis, rule out Patient presented with intermittent right upper quadrant abdominal pain worsening since last 2 weeks and more so in the last 2 days after presenting to the addiction center in the town. Patient claims he had [place] physician look at him for his belly pain, CAT scan done was negative as per patient. Admitting WBC normal, temperature normal, other labs normal, troponin negative, lipase normal, COVID test negative, D-dimer negative, bilirubin normal, liver enzymes mildly elevated, EKG normal. Admitting CXR with no acute process. Admitting CTAP: Questionable prominence of the gallbladder wall and trace pericholecystic edema, findings equivocal for acute cholecystitis. Recommends HIDA scan or RUQ US. HIDA scan recommended by surgery, not done over the weekend in the hospital, will order RUQ ultrasound, will get in touch with surgery afterwards. Currently n.p.o., IV fluid, continuing reasonable pain management (tylenol/oxycodone/morphine/ketorolac on board), monitor vitals, IV antibiotics until cholecystitis ruled out Other chronic medical conditions: ADD/currently not on maintenance medication, alcoholic hepatitis, anxiety disorder, anemia, alcohol/tobacco abuse -->> continue with home meds as and when able. Judicious narcotic use given possible drug-seeking behavior as per outpatient provider note. Nicotine patch as needed. DVT prophylaxis: SCDs until cholecystitis ruled out, likely procedure Full code Text document was generated using voice recognition software. It may contain grammatical or spelling errors. Kindly contact undersigned for clarification of any documentation item in question. Admission and Anticipated Discharge Date Admission Date: July 07, 2022 Subjective Patient seen and examined at bedside as a follow-up of RUQ abdominal pain/concern for acute cholecystitis, history of alcohol abuse, current tobacco abuse, coming from rehab. Patient was lying in bed, on room air, started complaining of pain as soon as I entered the room and was not happy that he was noted getting food to eat. He stated that he has not eaten food since last 2 days, was questioning what if he had eaten food and came yesterday evening/how come he cannot eat even small bite of sandwich. I explained to him that given the concern of acute cholecystitis and surgery is on board, will need to give bowel rest, will need to continue his IV hydration and possibly IV antibiotic until acute cholecystitis is ruled out. Unfortunately HIDA scan cannot be done over the weekend in our hospital, patient was really upset about it. Surgery had evaluated him in the morning. He is aware of the plan and arguing if he can get food or more pain meds or atleast one of them or else he will leave AMA. He was also dissatisfied how long the pain meds are scheduled. I believe he is on adequate pain Mx w/ Oxy, tylenol, ketorolac and morphine, which he has been getting pretty regularly though they are prn. When I examined the belly, I did not notice pain in the belly but at the same time he has received multiple pain medication by the time, I did not notice any facial grimacing. When asked after the exam, he said that " you are killing me, because I am an adult I let you exam and did not show my pain". Pt denies nausea, vomiting, has been afebrile. Physical Exam Physical Exam: GENERAL: Alert and oriented x3. NAD, on RA. Obese class I. HEENT: No pallor, no icterus. Pupils equal, round and reactive to light. Oral mucosa moist. NECK: No JVD, no neck masses. HEART: S1 and S2 heard. Regular rate and rhythm. No murmur, no gallop. RESPIRATORY SYSTEM: Normal AP diameter. No accessory muscle use. No wheezing, no crackles. ABDOMEN: Soft, bowel sounds present, nontender, mild distention. CENTRAL NERVOUS SYSTEM: No facial droop. Speech is clear. Obeys simple commands. Moves extremities. Anxious affect. EXTREMITIES: No edema, no erythema seen. Results & Data Results & Data ([facility]) Vital Signs (Past 12 Hours) Vital Signs Pulse Resp BP Pulse Ox O2 Del Method 07/08/22 07:22 78 18 134/89 95 Room Air
[2022-07-08] MEDS: AMPICILLIN/SULBACTAM SOD 3,000 MG in 0.9 % SODIUM CHLORIDE 100 ML IV SCH ×2 (14:23→20:21)
--- NOTE | 2022-07-08 16:20 | Ultrasound Report ---
ULTRASOUND RIGHT UPPER QUADRANT ABDOMEN CLINICAL HISTORY: Right upper quadrant abdominal pain. COMPARISON STUDY: Abdominal CT dated 07/07/2022. TECHNIQUE: Real-time, grayscale, and color flow sonography of the right upper quadrant of the abdomen was performed. Images are reviewed in the transverse and longitudinal planes. FINDINGS: Liver: The liver is enlarged and demonstrates heterogeneously increased echotexture indicating steato sis. There is no intrahepatic biliary ductal dilatation. The main portal vein is patent. Gallbladder: The gallbladder is distended and contains minimal sludge. No gallstones are identified. Question trace pericolic cystic fluid. No significant gallbladder wall thickening is seen. A sonograp hic Lora's sign is reportedly absent. The common bile duct measures up to 0.9 cm in diameter. Pancreas: Visualized portions of the pancreatic head and body are normal in appearance. The splenic v ein is patent. Right kidney: Survey images of the right kidney demonstrate normal size and echotexture. There is no hydronephrosis. Ascites: None. IMPRESSION: 1. Distended gallbladder with minimal sludge. No shadowing gallstones are identified. Question trace pericholecystic fluid. Findings are equivocal for acute cholecystitis. If there is strong clinical co ncern for acalculus cholecystitis a nuclear hepatobiliary scan should be considered. 2. Hepatomegaly and hepatic steatosis. ACT 112: Negative or not required by law. Electronically signed by: Rodney Crenshaw M.D. 07/08/2022 4:17 PM
[2022-07-09] MEDS: MoRPHine SULFATE 4 MG/ML 1 ML CARP\\VIAL IV PRN ×2 (01:00→10:03)
[2022-07-09] MEDS: AMPICILLIN/SULBACTAM SOD 3,000 MG in 0.9 % SODIUM CHLORIDE 100 ML IV SCH ×2 (01:43→09:23)
[2022-07-09] MEDS: KETOROLAC TROMETHAMINE 15 MG/ML VIAL IV PRN (04:05)
[2022-07-09 06:12] LABS: Hematocrit (blood only) 39.6 % (40.1-51.0); Hemoglobin 13.8 g/dl (14.0-18.0); Mean Corpuscular Hemoglobin 35.5 pg (25.0-34.0); Mean Corpuscular Hgb Conc 34.8 g/dL (32.0-36.0); Mean Corpuscular Volume 101.8 fL (80.0-100.0); Mean Platelet Volume 10.3 fL (9.4-12.4); Platelet Count 283 K/uL (130-400); RDW Coefficient of Variation 12.3 % (11.5-14.5); RDW Standard Deviation 46.4 fL (36.4-46.3); Red Blood Count 3.89 M/uL (4.63-6.08); White Blood Count 6.97 K/ul (4.8-10.8)
[2022-07-09 06:42] LABS: BUN Creatinine Ratio 10.1 (10-20); Calcium 8.7 mg/dl (8.5-10.1); Creatinine Clr Calc Pharmacy 109.3 ml/min; Est GFR (African American) 103.9 ml/min; Est GFR (Non-African American) 89.7 ml/min; Magnesium 2.3 mg/dl (1.7-2.4); Phosphorus 3.7 mg/dl (2.5-4.9); Potassium 4.2 mmol/L (3.5-5.1)
--- NOTE | 2022-07-09 07:47 | Surgery Progress Note ---
Date of Service July 09, 2022 Assessment & Plan (1) Abdominal pain: Plan: Patient has not had a hepatobiliary scan yet had an ultrasound of the gallbladder yesterday that shows some sludge no pericholecystic fluid no dilatation of common bile duct also had equivalent for acute cholecystitis As we mentioned before I think his primary problem is anxiety for multiple issues No plans to proceed with any cholecystectomy at this time Admission and Anticipated Discharge Date Admission Date: July 07, 2022 Subjective I spoke with the nurses this morning no major change in his anxiety Results & Data ([facility]) Vital Signs (Past 12 Hours) Vital Signs Temp Pulse Resp BP Pulse Ox O2 Del Method 07/09/22 07:13 36.6 C 71 16 124/81 94 Room Air 07/08/22 21:30 36.6 C 86 22 168/91 H 93 Room Air PG Care Time/CCT Total # of Minutes Spent Total Time Spent with Patient: Total time spent is greater than 50% in coordination of care (as documented) at patient's floor/unit and/or counseling patient: Coding Level of Care Code None Diagnoses Abdominal pain R10.9
--- NOTE | 2022-07-09 08:44 | Nuclear Medicine Report ---
NM hepatobiliary CLINICAL HISTORY: 47 years-old Male with R abd pain (stat order req for weekend studies). Acute righ t upper quadrant abdominal pain TECHNIQUE: Sequential anterior abdominal images were obtained through 60 minutes following the intra venous administration of 4.9 mCi of technetium-99m Choletec. A lateral image was also obtained. COMPARISON: CT abdomen and pelvis 07/07/2022, ultrasound 07/08/2022 FINDINGS: There is prompt, uniform accumulation of the tracer by the liver. There is normal filling of the int rahepatic ducts, common bile duct and normal excretion of the tracer into the duodenum. The gallblad lambert fills normally. IMPRESSION: Normal hepatobiliary study. No scintigraphic evidence for acute cholecystitis or common bile duct obstruction. ACT 112: Negative or not required by law. The above report was generated using voice recognition software. It may contain grammatical, syntax o r spelling errors. Electronically signed by: Wei Younger M.D. 07/09/2022 8:43 AM
[2022-07-09] MEDS ORDERED: hydrOXYzine HCl 25 MG TAB PO PRN (09:00)
[2022-07-09] MEDS: THIAMINE HCL 100 MG TAB PO SCH (09:28)
[2022-07-09] MEDS: diazePAM 5 MG TABLET PO SCH (09:28)
[2022-07-09] MEDS: FOLIC ACID 1 MG TAB PO SCH (09:29)
[2022-07-09] MEDS: CYANOCOBALAMIN (B-12) 500 MCG TABLET PO SCH (09:29)
[2022-07-09] MEDS: NICOTINE 21 MG/24 HR TDSY TD SCH (09:29)
[2022-07-09] MEDS: MULTIVITAMIN TAB PO SCH (09:29)
--- NOTE | 2022-07-09 13:12 | Discharge Summary ---
Date of Service July 09, 2022 Admission HPI Per Admitting Provider History obtained from patient and records. Medical history significant for ADD, anxiety disorder, history of alcohol withdrawal seizures, alcohol, and tobacco abuse. Patient is a resident of [place], [place] who is in town for alcohol rehab the last 2 days after confinement at a hospital in [facility] for alcohol withdrawal. Patient has had intermittent right upper quadrant pain symptoms for almost a year now. Sometimes related to eating, sometimes not. Progressive abdominal distention as per patient. Patient claims a weight gain of 50 pounds in a few months time. No chest pain. No unusual leg swelling. Shortness of breath on exertion in the last 2 years. Worsening right-sided abdominal discomfort in the last 2 weeks. Patient claims he told [place] physicians about problems during confinement. CAT scan of the belly from [facility] confinement was negative as per patient. Worsening discomfort since arrival at the local [facility] center 2 days ago. Patient especially distressed by his 'sagging' belly. No nausea, no vomiting, no fever, no chills. Addiction center provider concerned about drug-seeking behavior given patient behavior and conflicting stories. Patient sent to ER for evaluation. IV Cefoxitin administered at the ER Medical History as above Surgical History : Knee surgery Family History : Lung cancer, alcoholism, DM, gallbladder disease Personal/Social history : 1.5 pack daily, alcohol abuse, former work in a [employer] factory Admission Exam Per Admitting Provider GENERAL: Anxious, episodic stuttering, obese, no respiratory distress SKIN: Normal color, warm HEENT: [place] palpebral conjunctivae, no ptosis, dry buccal mucosa NECK : Supple, no tenderness CHEST : CTA, no tenderness HEART : RRR, no obvious murmurs ABDOMEN: Abdominal distention, right-sided abdominal tenderness EXTREMITIES : Minimal LE swelling, no LE tenderness, no other conspicuous deformities noted NEUROLOGIC : Coherent, no facial asymmetry, no other gross focality Principal Diagnosis Abdominal pain, concern for acute cholecystitis, ruled out. Likely anxiety disorder Undergoing rehab for alcohol use disorder Discharge Exam GENERAL: Alert and oriented x3. NAD, on RA. Obese class I. HEENT: No pallor, no icterus. Pupils equal, round and reactive to light. Oral mucosa moist. NECK: No JVD, no neck masses. HEART: S1 and S2 heard. Regular rate and rhythm. No murmur, no gallop. RESPIRATORY SYSTEM: Normal AP diameter. No accessory muscle use. No wheezing, no crackles. ABDOMEN: Soft, bowel sounds present, nontender again today, mild distention. CENTRAL NERVOUS SYSTEM: No facial droop. Speech is clear. Obeys simple commands. Moves extremities. Anxious affect. EXTREMITIES: No edema, no erythema seen. Discharge Data Allergies Allergy/AdvReac Type Severity Reaction Status Date / Time No Known Allergies Allergy Unverified 07/07/22 19:07 Consultations 07/07/22 17:49 ED Decision to Admit Stat 07/07/22 19:33 ED Decision to Admit Stat Procedures Performed Operation Date: 07/08/22 12:00 <No data on this case meets the specified criteria> Ordered Studies 07/07/22 16:27 CT Abd and Pelvis [CT abd pelvis IV con only] Stat 07/08/22 14:39 US RUQ [US liver] Stat Hospital Course (1) Abdominal pain: Plan 47-year-old man with PMH of ADD, anxiety disorder, alcohol withdrawal seizure, alcohol and tobacco abuse who is a resident of [facility] and is in alcohol rehab for the last 2 days and this time presented with a complaint of intermittent right upper quadrant pain symptoms for almost a year now which has been worsening in the last 2 weeks SUBACUTE NURSE. He reports the pain is sometimes related to eating and sometimes not. He also reports progressive abdominal distention. He claims he gained 50 pounds of weight in the last few months. He denies nausea or vomiting or fever or chills at presentation. Addiction Center provider concerned about drug-seeking behavior given patient behavior and conflicting stories per admitting note. He was managed for the following: Intermittent RUQ abdominal pain, worsening lately Likely acute cholecystitis, rule out Patient presented with intermittent right upper quadrant abdominal pain worsening since last 2 weeks and more so in the last 2 days after presenting to the addiction center in the town. Patient claims he had [place] physician look at him for his belly pain, CAT scan done was negative as per patient. Admitting WBC normal, temperature normal, other labs normal, troponin negative, lipase normal, COVID test negative, D-dimer negative, bilirubin normal, liver enzymes mildly elevated, EKG normal. Admitting CXR with no acute process. Admitting CTAP: Questionable prominence of the gallbladder wall and trace pericholecystic edema, findings equivocal for acute cholecystitis. Recommends HIDA scan or RUQ US. RUQ ultrasound was equivocal, HIDA scan ruled out acute cholecystitis/gallbladder or CBD pathology. Patient advancing diet, tolerating diet well, no abdominal tenderness on exam, did not see any facial grimacing, patient can use [id number] Tylenol for mild pain and rqck-nxw-pwozdre Motrin or Aleve for moderate pain. He will have to take Motrin or Aleve with food. Patient hemodynamically stable, labs are good, patient afebrile, patient with no belly pain on exam. Recommend low-fat diet and heart healthy diet for the patient. Other chronic medical conditions:ADD/currently not on maintenance medication, alcoholic hepatitis, anxiety disorder, anemia, alcohol/tobacco abuse -->> continue with home meds as and when able. Judicious narcotic use given possible drug-seeking behavior as per outpatient provider note. Nicotine patch as needed. Full code Patient is being discharged to rehab with following instruction at the point of discharge: Follow-up with the primary care physician within a week time. Maintain detoxification as prior. For your anxiety, you have been prescribed hydroxyzine 3 times a day as needed, if ongoing anxiety despite completion of detoxification program, you can contact with your primary care physician for any need for long-term anxiety medication. For your mild pain you can use owke-esd-ohhebii Tylenol up to 3-4 times a day; for your moderate pain you can use fhrm-kvs-liihuty ibuprofen or naproxen up to 2-3 times a day with food. Take your medications as prescribed. Home Health Attestation I certify that this patient is under my care and that I, or a physicians server service assistant working with me, had a face to-face encounter that meets the home health hqqf-xv-suru encounter requirements with this patient. The encounter with the patient was in whole, or in part, for the following medical condition, which is the primary reason for home health care (list medical condition): I certify that, based on my findings, the following services are medically necessary home health services: My clinical findings support the need for the above services because: Further, I certify that my clinical findings support that this patient is homebound (i.e. absences from home require considerable and taxing effort and are for medical reasons or evangelical services or infrequently or of short duration when for other reasons) because: Certification for Home Health Services: Based on the above findings, I certify that this patient is confined to the home and needs intermittent correction care, physical therapy and/or speech therapy or continues to need occupational therapy. The patient is under my care, and I have initiated the establishment of the plan of care. This patient will be followed by a physician who will periodically review the plan of care. Total Time Total Time Spent Total Time Spent (In Minutes): 40 Discharge Plan Discharge Items Patient Disposition: Drug & Alcohol Rehab Reason For Visit: ABD PAIN Discharge Diagnosis: Abdominal pain, concern for acute cholecystitis, ruled out. Likely anxiety disorder Undergoing rehab for alcohol use disorder Activity: Resume your previous activity Non-emergency contact: Primary Care Provider Call non-emergency contact if: you have any medication questions, your symptoms worsen, your pain is not controlled and your temperature is above 101.5 Follow-up/Referrals: PCP,NO [Primary Care Provider] - Diet: Heart Healthy and Low Fat [facility] Attending Provider Instructions: Follow-up with the primary care physician within a week time. Maintain detoxification as prior. For your anxiety, you have been prescribed hydroxyzine 3 times a day as needed, if ongoing anxiety despite completion of detoxification program, you can contact with your primary care physician for any need for long-term anxiety medication. For your mild pain you can use nmpt-oyv-mldtjjj Tylenol up to 3-4 times a day; for your moderate pain you can use hgbq-mhq-hlxignq ibuprofen or naproxen up to 2-3 times a day with food. Take your medications as prescribed. Pending Studies at Discharge: No Stand-Alone Forms: My [facility] Skilled Items Patient informed of condition?: Yes DNR: No Discharge Level of Care: Other Communicable Disease: No Discharge Prognosis: Stable Lines: None Urinary Catheter: No Medications and DC Order Prescriptions: New nicotine [Nicoderm CQ] 21 mg/24 hr Patch 24 Hour 21 mg transdermal QAM 28 Days Qty: 28 0RF hydroxyzine HCl 25 mg Tablet 25 mg PO Q8H PRN (Reason: anxiety) Qty: 90 0RF Continued multivitamin Tablet 1 tab PO DAILY cyanocobalamin (vitamin B-12) [Vitamin B-12] 1,000 mcg Tablet 1,000 mcg PO DAILY thiamine HCl (vitamin B1) 100 mg Tablet 100 mg PO DAILY folic acid 1 mg Tablet 1 mg PO DAILY diazepam [Valium] 5 mg Tablet 5 mg PO BID Rx Instructions: 5 mg bid for 07/07/22, 5 mg for 07/08 then dc diazepam [Valium] 5 mg Tablet 5 mg PO .DAILY ON 07/08/22 Rx Instructions: crush, watch for sedation Ensure Liquid 1 ea PO DAILY Discharge Orders: Discharge Order (Routine); Ordered 07/09/22 Ordered By: Thomas Ibanez Admission Data Admit Date/Time: 07/07/22 21:03 Attending Provider: Thomas Ibanez Admit Provider: Douglas Ivey Primary Care Provider: PCP,NO Other Providers: Gurinder Mao ; Douglas Ivey
== END 2022-07-09 16:46 | disposition alcohol treatment (31) ==
LOC: ED 13:46 → INTOOBSV 21:03 → 3N 21:03

== ENCOUNTER 2022-08-22 08:59 | Observation (INO) ==
[2022-08-22] MEDS ORDERED: SODIUM CHLORIDE 0.9% 1000ML 1,000 ML IV ONE ×2 (09:46→10:46)
--- NOTE | 2022-08-22 09:50 | Emergency Department Note ---
Impression & Plan Abdominal pain, Elevated bilirubin ED Provider Note NAME: ZEB JOHN AGE: 47 SEX: M : 1975 ARRIVES VIA: Walk-In INFORMANT: Patient ED PROVIDER(S): Harrison Liriano DO CHIEF COMPLAINT: abdominal pain HPI: Patient is a 47-year-old male who presents ER for 6 out of 10 abdominal pain located periumbilically/infraumbilically. Associate with diarrhea which has been present for the past week. Denies any headache or change in vision. No chest pain or shortness of breath. No dysuria, urgency, or frequency. He notes he was here over a month ago and treated with antibiotics for possible cholecystitis. He has never had this removed. He is in a treatment rehab facility and has undergone detox for alcohol. Notes has been in there for close to 45 days. ROS: See above HPI for pertinent positives & negatives. A total of 10 systems reviewed and were otherwise negative. PAST MEDICAL HISTORY:See Below PAST SURGICAL HISTORY:See Below FAMILY HISTORY:See Below SOCIAL HISTORY:See Below HOME MEDICATIONS:See Below ALLERGIES:See Below VITALS:See Below PHYSICAL EXAMINATION: GENERAL: Sitting up in bed, alert, well appearing, well nourished, no distress, non-toxic EYE EXAM: normal conjunctiva. OROPHARYNX: no exudate, no erythema, lips, buccal mucosa, and tongue normal and mucous membranes are moist NECK: supple, no nuchal rigidity, no adenopathy, non-tender LUNGS: Clear to auscultation. Normal chest wall mechanics HEART: no murmurs, S1 normal and S2 normal ABDOMEN: abdomen soft, mild diffuse tenderness, normo-active bowel sounds, no masses, no rebound or guarding. UPPER EXTREMITIES: upper extremities are grossly normal. LOWER EXTREMITIES: No pitting edema. NEURO EXAM: Normal sensorium, cranial nerves II-XII grossly intact, normal speec h, no gross weakness of arms, no gross weakness of legs. MEDICAL DECISION MAKING: Patient is a 47-year-old male who presents ER for above-stated complaint. IV was established blood work was obtained. Labs show no significant leukocytosis or anemia. BMP along LFTs bilirubin lipase was unremarkable. UA was negative. Patient was given IV fluids morphine and Zofran. CT abdomen pelvis showed distended gallbladder. General surgery had seen him for similar complaint about a month ago. Did consult them and they evaluated him and recommended admission to the hospitalist for further evaluation. Patient was updated at bedside Triage Nursing notes reviewed. Limited review of prior medical records performed Vital Signs: reviewed and remarkable for HTN Differential diagnosis: Differential diagnoses includes but is not limited to gastritis, peptic ulcer disease, GERD, gallbladder disease, pancreatitis, small bowel obstruction, acute coronary syndrome, pericarditis, ischemic bowel, irritable bowel disease, ir ritable bowel syndrome, appendicitis, diverticulitis, malignancy, hernia, urinary tract infection, torsion, [/ectopic (if female)], perforation, trauma, infectious. ER treatment provided: See below Diagnostics interpreted by me: ECG: none Cardiac Monitoring: An order was placed for continuous cardiac monitoring. The monitor shows a rate of 70 with sinus rhythm. Laboratory studies: As stated above and show below. Imaging studies: CT abdomen pelvis as described above Consultation(s): Patient was seen evaluated by just britta from general surgery who recommended admission to the hospitalist. Discussed with Destiny from [facility] hospitalist service. Procedures: none Critical Care: None Past Med/Surg History Medical History (Updated 08/22/22 @ 14:08 by Harrison Liriano DO) ADD (attention deficit disorder) Alcohol abuse MACKENZIE (generalized anxiety disorder) Tobacco abuse Surgical History (Updated 08/22/22 @ 13:46 by Iman Talavera PA-C) Hx of knee surgery Family History (Updated 08/22/22 @ 13:47 by Iman Talavera PA-C) Other Alcoholism Diabetes Gallbladder disease Lung cancer Social History Smoking Status: Current every day smoker Cigarettes Per Day: 1.5 PPD; Second Hand Exposure: No; Hx Alcohol Use: Yes Alcohol type: hard liquor Preferred Language: Nicaraguan Communication Ability: Effective Returner Required: No Beliefs That Will Affect Care: None marital status: Current Living Situation: Alone Current Living Situation Comment: Lives at home alone in [facility] but has been at [facility] for rehab Feels Safe at Home: Yes Assistive Devices: None Allergies Allergies Allergy/AdvReac Type Severity Reaction Status Date / Time No Known Allergies Allergy Unverified 07/07/22 19:07 Home Meds Home Medications Medication Instructions Recorded Confirmed cyanocobalamin (vitamin B-12) 1,000 mcg PO DAILY 07/07/22 07/07/22 1,000 mcg tablet (Vitamin B-12) diazepam 5 mg tablet (Valium) 5 mg PO .DAILY ON 07/08/22 07/07/22 07/07/22 diazepam 5 mg tablet (Valium) 5 mg PO BID 07/07/22 07/07/22 folic acid 1 mg tablet 1 mg PO DAILY 07/07/22 07/07/22 food supplemt, lactose-reduced 1 ea PO DAILY 07/07/22 07/07/22 (Ensure oral liquid) multivitamin 1 tab PO DAILY 07/07/22 07/07/22 thiamine HCl (vitamin B1) 100 mg 100 mg PO DAILY 07/07/22 07/07/22 tablet Previous Rx's Medication Instructions Recorded albuterol sulfate 90 mcg/actuation 1 inh inhalation Q6H PRN shortness 07/09/22 aerosol inhaler of breath or wheezing #8.5 grams hydroxyzine HCl 25 mg tablet 25 mg PO Q8H PRN anxiety #90 tabs 07/09/22 Results & Data (ED) Vital Signs Vital Signs - 24 hr 08/22/22 09:06 08/22/22 09:56 08/22/22 10:09 Temperature 36.6 C Temperature Source Oral Pulse Rate 86 80 Pulse Rate [Apical] 73 Respiratory Rate 18 16 16 Blood Pressure 152/95 H Blood Pressure [Left Arm] 166/97 H Blood Pressure Mean 114 Blood Pressure Mean [Left Arm] 120 Pulse Oximetry 96 96 95 Oxygen Delivery Method Room Air Sepsis Recent Fever Within 48 Hours No Sepsis New/Unexplained Change in Mental Status No Sepsis Action Taken by Nursing No Action Required Laboratory Data Result diagrams: 08/22/22 09:50 08/22/22 09:50 Lab Results 08/22/22 08/22/22 08/22/22 Range/Units 09:50 09:50 09:53 WBC 7.89 (4.8-10.8) K/ul RBC 4.34 L (4.63-6.08) M/uL Hgb 14.5 (14.0-18.0) g/dl Hct 41.8 (40.1-51.0) % MCV 96.3 (80.0-100.0) fL MCH 33.4 (25.0-34.0) pg MCHC 34.7 (32.0-36.0) g/dL RDW Std Deviation 42.3 (36.4-46.3) fL RDW Coeff of Robby 11.9 (11.5-14.5) % Plt Count 266 (130-400) K/uL MPV 11.0 (9.4-12.4) fL Immature Gran % (Auto) 0.9 % Neut % (Auto) 58.9 % Lymph % (Auto) 30.8 % Letcher % (Auto) 6.7 % Eos % (Auto) 1.4 % Baso % (Auto) 1.3 % Neut # (Auto) 4.65 (1.4-6.5) K/uL Lymph # (Auto) 2.43 (1.2-3.4) K/uL Letcher # (Auto) 0.53 (0.24-0.82) K/uL Eos # (Auto) 0.11 (0-0.50) K/uL Baso # (Auto) 0.10 (0-0.2) K/uL Immature Gran # (Auto) 0.07 H (0.00-0.02) K/uL Sodium 138 (136-145) mmol/L Potassium 4.7 (3.5-5.1) mmol/L Chloride 105 (98-107) mmol/L Carbon Dioxide 25 (21-32) mmol/L Anion Gap 8 (3-11) BUN 16 (6-23) mg/dl Creatinine 0.88 (0.6-1.4) mg/dl Est Cr Clr Drug Dosing 124.6 ml/min Est GFR ( Amer) 117.7 ml/min Est GFR (Non-Af Amer) 101.6 ml/min BUN/Creatinine Ratio 18.2 (10-20) Glucose 95 (70-99(Fasting)) mg/dl Calcium 9.8 (8.5-10.1) mg/dl Total Bilirubin 1.2 H (0.2-1.0) mg/dl AST 16 (13-39) U/L ALT 19 (7-52) U/L Alkaline Phosphatase 59 (34-104) U/L Total Protein 7.7 (6.0-8.3) gm/dl Albumin 4.5 (3.4-5.0) gm/dl Globulin 3.2 (2.5-4.0) gm/dl Albumin/Globulin Ratio 1.4 (0.9-2) Lipase 23 (11-82) U/L Urine Color Dark Yellow Urine Appearance Clear (Clear) Urine pH 6.0 (4.5-7.5) Ur Specific [place] 1.028 (1.000-1.030) Urine Protein Negative (Negative) Urine Glucose (UA) Negative (Negative) Urine Ketones Trace H (Negative) Urine Blood Negative (Negative) Urine Nitrite Negative (Negative) Urine Bilirubin Negative (Negative) Urine Urobilinogen Negative (Negative) Ur Leukocyte Esterase Negative (Negative) Administered Medications Discontinued Medications Sodium Chloride (Nss 1000ml) 1,000 mls @ 999 mls/hr IV .Q1H1M ONE Stop: 08/22/22 10:46 Last Infusion: 08/22/22 11:02 Dose: 0 mls/hr Documented By: Admin: 08/22/22 10:01 Dose: 999 mls/hr Documented By: ALFONZO Sodium Chloride (Nss 1000ml) 1,000 mls @ 999 mls/hr IV .Q1H1M ONE Stop: 08/22/22 11:46 Last Infusion: 08/22/22 13:11 Dose: 0 mls/hr Documented By: Admin: 08/22/22 11:48 Dose: 999 mls/hr Documented By: JE Ioversol (Optiray 350 100ml) 94 ml IV ONCE ONE Stop: 08/22/22 10:59 Last Admin: 08/22/22 10:58 Dose: 94 ml Documented By: DALI Morphine Sulfate (Morphine Sulfate 10 Mg/Ml Carp/Vial) 6 mg IV NOW STA Stop: 08/22/22 10:47 Last Admin: 08/22/22 11:43 Dose: 6 mg Documented By: JE Ondansetron HCl (Ondansetron Inj 2 Mg/Ml 2 Ml Vial) 4 mg IV NOW STA Stop: 08/22/22 10:47 Last Admin: 08/22/22 11:44 Dose: 4 mg Documented By: JE Imaging Data Radiologist's Impression: Abdomen/Pelvis CT 08/22/22 09:[address] WITH IV CONTRAST CT DOSE: 1027.84 mGycm HISTORY: Generalized abdominal pain. TECHNIQUE: Multiaxial CT images of the abdomen and pelvis were performed following the use of intravenous contrast. A dose lowering technique was utilized adhering to the principles of ALARA. COMPARISON STUDY: Abdomen and pelvis CT 07/07/2022. FINDINGS: Mild dependent changes seen at the lung bases. No pneumoperitoneum. No pneumatosis. There is a healing right lateral 10th rib fracture. A 3 cm duodenal diverticulum is again noted. Multiple scattered subcentimeter hypodense lesions again noted within the liver. These are technically too small to characterize b ut may represent biliary hamartomas or cysts. The gallbladder remains mildly distended. No gallbladder wall thickening or gallstones identified. Normal caliber common bile duct. The pancreas, spleen, adrenal glands, and kidneys are unremarkable. No ureteral stones. No hydronephrosis. Mild bilateral perinephric edema remains unchanged. The main portal vein is patent. Normal caliber abdominal aorta. No retroperitoneal lymphadenopathy. No pelvic free fluid or pelvic lymphadenopathy. The bladder is unremarkable. No bowel wall thickening or obstruction. Normal appendix. A few colonic diverticula. No evidence for acute diverticulitis. There is a tiny fat-containing umbilical hernia. IMPRESSION: 1. No bowel wall thickening or obstruction. 2. Normal appendix. 3. Mildly distended gallbladder, unchanged. No gallbladder wall thickening. 4. A healing right lateral 10th rib fracture. No acute rib fractures identified. 5. Colonic diverticulosis. No evidence for acute diverticulitis. ACT 112: Negative or not required by law. Electronically signed by: Ben Del Valle M.D. 08/22/2022 11:35 AM Discharge Plan Visit Data Chief Complaint: Unable to Void Stated Complaint: GALLBLADDER ISSUES, ABDOMINAL PAIN, UNABLE TO VOID ED Provider: Harrison Liriano Discharge Problem: Abdominal pain, Elevated bilirubin Forms Stand Alone Forms: My [facility] Prescriptions Prescriptions: No Action multivitamin Tablet 1 tab PO DAILY cyanocobalamin (vitamin B-12) [Vitamin B-12] 1,000 mcg Tablet 1,000 mcg PO DAILY thiamine HCl (vitamin B1) 100 mg Tablet 100 mg PO DAILY folic acid 1 mg Tablet 1 mg PO DAILY diazepam [Valium] 5 mg Tablet 5 mg PO BID Rx Instructions: 5 mg bid for 07/07/22, 5 mg for 07/08 then dc diazepam [Valium] 5 mg Tablet 5 mg PO .DAILY ON 07/08/22 Rx Instructions: crush, watch for sedation Ensure Liquid 1 ea PO DAILY hydroxyzine HCl 25 mg Tablet 25 mg PO Q8H PRN (Reason: anxiety) Qty: 90 0RF albuterol sulfate 90 mcg/actuation HFA aerosol inhaler 1 inh inhalation Q6H PRN (Reason: shortness of breath or wheezing) Qty: 8.5 0RF Referrals Referrals: PCP,NO [Primary Care Provider] -
[2022-08-22 10:04] LABS: Basophils % (auto) 1.3 %; Eosinophils # (auto) 0.11 K/uL (0-0.50); Eosinophils % (auto) 1.4 %; Hematocrit (blood only) 41.8 % (40.1-51.0); Hemoglobin 14.5 g/dl (14.0-18.0); Immature Granulocytes # (auto) 0.07 K/uL (0.00-0.02); Immature Granulocytes % (auto) 0.9 %; Lymphocytes # (auto) 2.43 K/uL (1.2-3.4); Lymphocytes % (auto) 30.8 %; Mean Corpuscular Hemoglobin 33.4 pg (25.0-34.0); Mean Corpuscular Hgb Conc 34.7 g/dL (32.0-36.0); Mean Corpuscular Volume 96.3 fL (80.0-100.0); Monocytes # (auto) 0.53 K/uL (0.24-0.82); Monocytes % (auto) 6.7 %; Neutrophils # (auto) 4.65 K/uL (1.4-6.5); Neutrophils % (auto) 58.9 %; Platelet Count 266 K/uL (130-400); RDW Coefficient of Variation 11.9 % (11.5-14.5); RDW Standard Deviation 42.3 fL (36.4-46.3); Red Blood Count 4.34 M/uL (4.63-6.08); White Blood Count 7.89 K/ul (4.8-10.8)
[2022-08-22 10:13] LABS: Appearance Urine Clear (Clear); Bilirubin Urine Negative (Negative); Blood Urine Negative (Negative); Color Urine Dark Yellow; Glucose Urine UA Negative (Negative); Ketones Urine Trace (Negative); Leukocyte Esterase Urine Negative (Negative); Nitrite Urine Negative (Negative); Protein Urine Negative (Negative); Specific Gravity Urine 1.028 (1.000-1.030); Urobilinogen Urine Negative (Negative)
[2022-08-22 10:28] LABS: Albumin Globulin Ratio 1.4 (0.9-2); Albumin Level 4.5 gm/dl (3.4-5.0); BUN Creatinine Ratio 18.2 (10-20); Bilirubin,Total 1.2 mg/dl (0.2-1.0); Calcium 9.8 mg/dl (8.5-10.1); Creatinine Clr Calc Pharmacy 124.6 ml/min; Est GFR (African American) 117.7 ml/min; Est GFR (Non-African American) 101.6 ml/min; Globulin 3.2 gm/dl (2.5-4.0); Potassium 4.7 mmol/L (3.5-5.1); Total Protein 7.7 gm/dl (6.0-8.3)
[2022-08-22] MEDS ORDERED: ONDANSETRON INJ 2 MG/ML 2 ML VIAL IV STA (10:46)
[2022-08-22] MEDS ORDERED: MoRPHine SULFATE 10 MG/ML CARP/VIAL IV STA (10:46)
[2022-08-22] MEDS ORDERED: OPTIRAY 350 100ml IV ONE (10:58)
--- NOTE | 2022-08-22 11:37 | CT Scan Report ---
ABDOMEN AND PELVIS CT WITH IV CONTRAST CT DOSE: 1027.84 mGycm HISTORY: Generalized abdominal pain. TECHNIQUE: Multiaxial CT images of the abdomen and pelvis were performed following the use of intrave nous contrast. A dose lowering technique was utilized adhering to the principles of ALARA. COMPARISON STUDY: Abdomen and pelvis CT 07/07/2022. FINDINGS: Mild dependent changes seen at the lung bases. No pneumoperitoneum. No pneumatosis. There i s a healing right lateral 10th rib fracture. A 3 cm duodenal diverticulum is again noted. Multiple sc attered subcentimeter hypodense lesions again noted within the liver. These are technically too small to characterize but may represent biliary hamartomas or cysts. The gallbladder remains mildly disten ded. No gallbladder wall thickening or gallstones identified. Normal caliber common bile duct. The pa ncreas, spleen, adrenal glands, and kidneys are unremarkable. No ureteral stones. No hydronephrosis. Mild bilateral perinephric edema remains unchanged. The main portal vein is patent. Normal caliber ab dominal aorta. No retroperitoneal lymphadenopathy. No pelvic free fluid or pelvic lymphadenopathy. Th e bladder is unremarkable. No bowel wall thickening or obstruction. Normal appendix. A few colonic di verticula. No evidence for acute diverticulitis. There is a tiny fat-containing umbilical hernia. IMPRESSION: 1. No bowel wall thickening or obstruction. 2. Normal appendix. 3. Mildly distended gallbladder, unchanged. No gallbladder wall thickening. 4. A healing right lateral 10th rib fracture. No acute rib fractures identified. 5. Colonic diverticulosis. No evidence for acute diverticulitis. ACT 112: Negative or not required by law. Electronically signed by: Ben Del Valle M.D. 08/22/2022 11:35 AM
--- NOTE | 2022-08-22 13:40 | Surgery Consultation ---
Date of Consultation August 22, 2022 Assessment & Plan (1) Abdominal pain: (2) History of alcohol abuse: Plan 47 year-old male with history of anxiety , ADD, alcohol abuse for 30+ years currently in alcohol treatment facility and sober for 50 days presented to ED with complaint of increasing abdominal pain and postprandial diarrhea. He was admitted here at [facility] in June and had ct scan, US , and HIDA scan showing mild gallbladder distention and sludge with no stones and no evidence of acute cholecystitis. He is extremely anxious and is concerned there is something wrong. Given history of alcohol abuse, question of GI bleeding 3 years ago with admission at a hospital in [place], diarrhea, increasing abdominal distention no leukocytosis, no fever, CT scan with mild gallbladder distention unchanged from previously would recommend hospitalist admit for further work-up , possible pysch consult, and MRCP. Unsure if he is seeking pain management given his history of narcotic abuse? Discussed with Dr. Munson who agrees with above. History of Present Illness Reason for Consultation: Abdominal pain, questionable cholecystitis Requesting Physician: Destiny Talavera PA-C History of Present Illness Stas is a 47 year-old male with history of alcohol abuse for 30+ years cu rrently in alcohol rehab facility at [facility] who was admitted here at [facility] in June for possible acute cholecystitis . He had a HIDA scan which was unremarkable for acute cholecystitis and was discharged. He presented back to ER today with complaint of abdominal pain that has been slowly increasing since discharge with diarrhea postprandial. Pain is located around his umbilicus in mid abdomen. "feels like an upset stomach". Diarrhea after eating. No blood in stools but some black looking stools a few times. Takes Excedrin twice a day for abdominal discomfort. States he was drinking about 1 liter of vodka a day for a few years. Has not had anything to drink in last 50 days. States a few years ago he was admitted in a hospital in [place] and had GI bleeding and was vomiting up blood and had a tube down his nose. Unsure if he had a stomach ulcer or not. History is limited. He is very anxious upon entering room and is very upset because of being anxious and feeling like something is wrong. States he is having pain and somewhat grimacing but that when asking questions he does not seem to be in pain just anxious. States he had some right upper quadrant pain radiation from the periumbilical pain but mostly states his pain is around umbilicus. Feels as though his belly has significantly increased in size. Constantly saying " I am sorry, I am jus worried something is wrong" States he is scared of surgery and even has phobia of needles. Allergies Allergy/AdvReac Type Severity Reaction Status Date / Time No Known Allergies Allergy Unverified 07/07/22 19:07 Home Medications Medication Instructions Recorded Confirmed Type cyanocobalamin (vitamin B-12) 1,000 mcg PO DAILY 07/07/22 07/07/22 History 1,000 mcg tablet (Vitamin B-12) diazepam 5 mg tablet (Valium) 5 mg PO .DAILY ON 07/08/22 07/07/22 07/07/22 History diazepam 5 mg tablet (Valium) 5 mg PO BID 07/07/22 07/07/22 History folic acid 1 mg tablet 1 mg PO DAILY 07/07/22 07/07/22 History food supplemt, lactose-reduced 1 ea PO DAILY 07/07/22 07/07/22 History (Ensure oral liquid) multivitamin 1 tab PO DAILY 07/07/22 07/07/22 History thiamine HCl (vitamin B1) 100 mg 100 mg PO DAILY 07/07/22 07/07/22 History tablet albuterol sulfate 90 mcg/actuation 1 inh inhalation Q6H PRN shortness 07/09/22 Rx aerosol inhaler of breath or wheezing #8.5 grams hydroxyzine HCl 25 mg tablet 25 mg PO Q8H PRN anxiety #90 tabs 07/09/22 Rx Patient History Medical History (Updated 08/22/22 @ 14:14 by Carolina Galan PA-C) ADD (attention deficit disorder) Alcohol abuse MACKENZIE (generalized anxiety disorder) Tobacco abuse Surgical History (Updated 08/22/22 @ 13:46 by Iman Talavera PA-C) Hx of knee surgery Family History (Updated 08/22/22 @ 13:47 by Iman Talavera PA-C) Other Alcoholism Diabetes Gallbladder disease Lung cancer Social History Smoking Status: Current every day smoker Cigarettes Per Day: 1.5 PPD; Second Hand Exposure: No; Hx Alcohol Use: Yes Alcohol type: hard liquor Preferred Language: Cook Islander Communication Ability: Effective Tack Welder Required: No Beliefs That Will Affect Care: None marital status: Current Living Situation: Alone Current Living Situation Comment: Lives at home alone in [facility] but has been at [facility] for rehab Feels Safe at Home: Yes Assistive Devices: None Review of Systems Review of Systems: All systems reviewed & are unremarkable except as noted in HPI & below Physical Exam Constitutional: WD/WN, vitals as above cooperative; no acute distress, not ill appearing, not in distress and not combative he is not in acute distress, is anxious and is able to be calmed down but easily gets anxious again Neck: normal visual inspection and trachea midline Respiratory: normal respiratory effort; no respiratory distress and no labored breathing Cardiovascular: Rate/Rhythm: regular rhythm and + tachycardic Heart Sounds: normal S1 and normal S2 Gastrointestinal (Abdomen): Inspection/Auscultation: + abdomen distended and + hypoactive bowel sounds; + abnormal bowel sounds and no abdominal surgical scar Percussion/Palpation: + abdomen tender (generalized tenderness on exam) and abdomen soft; no guarding and abdomen not rigid Skin: no rashes, warm and dry no jaundice Psychiatric: Orientation: alert and oriented x 3 Affect: + anxious affect and + tearful affect Mood: + anxious mood Thought Content: + phobias Results & Data ([facility]) Vital Signs (Past 12 Hours) Vital Signs Temp Pulse Pulse Resp BP BP Pulse Ox 08/22/22 10:09 73 16 166/97 H 95 08/22/22 09:56 80 16 96 08/22/22 09:06 36.6 C 86 18 152/95 H 96 O2 Del Method 08/22/22 10:09 08/22/22 09:56 08/22/22 09:06 Room Air Laboratory Results 08/22/22 08/22/22 08/22/22 Range/Units 09:53 09:50 09:50 WBC 7.89 (4.8-10.8) K/ul RBC 4.34 L (4.63-6.08) M/uL Hgb 14.5 (14.0-18.0) g/dl Hct 41.8 (40.1-51.0) % MCV 96.3 (80.0-100.0) fL MCH 33.4 (25.0-34.0) pg MCHC 34.7 (32.0-36.0) g/dL RDW Std Deviation 42.3 (36.4-46.3) fL RDW Coeff of Robby 11.9 (11.5-14.5) % Plt Count 266 (130-400) K/uL MPV 11.0 (9.4-12.4) fL Immature Gran % (Auto) 0.9 % Neut % (Auto) 58.9 % Lymph % (Auto) 30.8 % [place] % (Auto) 6.7 % Eos % (Auto) 1.4 % Baso % (Auto) 1.3 % Neut # (Auto) 4.65 (1.4-6.5) K/uL Lymph # (Auto) 2.43 (1.2-3.4) K/uL [place] # (Auto) 0.53 (0.24-0.82) K/uL Eos # (Auto) 0.11 (0-0.50) K/uL Baso # (Auto) 0.10 (0-0.2) K/uL Immature Gran # (Auto) 0.07 H (0.00-0.02) K/uL Sodium 138 (136-145) mmol/L Potassium 4.7 (3.5-5.1) mmol/L Chloride 105 (98-107) mmol/L Carbon Dioxide 25 (21-32) mmol/L Anion Gap 8 (3-11) BUN 16 (6-23) mg/dl Creatinine 0.88 (0.6-1.4) mg/dl Est Cr Clr Drug Dosing 124.6 ml/min Est GFR ( Amer) 117.7 ml/min Est GFR (Non-Af Amer) 101.6 ml/min BUN/Creatinine Ratio 18.2 (10-20) Glucose 95 (70-99(Fasting)) mg/dl Calcium 9.8 (8.5-10.1) mg/dl Total Bilirubin 1.2 H (0.2-1.0) mg/dl AST 16 (13-39) U/L ALT 19 (7-52) U/L Alkaline Phosphatase 59 (34-104) U/L Total Protein 7.7 (6.0-8.3) gm/dl Albumin 4.5 (3.4-5.0) gm/dl Globulin 3.2 (2.5-4.0) gm/dl Albumin/Globulin Ratio 1.4 (0.9-2) Lipase 23 (11-82) U/L Urine Color Dark Yellow Urine Appearance Clear (Clear) Urine pH 6.0 (4.5-7.5) Ur Specific [place] 1.028 (1.000-1.030) Urine Protein Negative (Negative) Urine Glucose (UA) Negative (Negative) Urine Ketones Trace H (Negative) Urine Blood Negative (Negative) Urine Nitrite Negative (Negative) Urine Bilirubin Negative (Negative) Urine Urobilinogen Negative (Negative) Ur Leukocyte Esterase Negative (Negative) Diagnostic Findings ABDOMEN AND PELVIS CT WITH IV CONTRAST CT DOSE: 1027.84 mGycm HISTORY: Generalized abdominal pain. TECHNIQUE: Multiaxial CT images of the abdomen and pelvis were performed following the use of intravenous contrast. A dose lowering technique was utilized adhering to the principles of ALARA. COMPARISON STUDY: Abdomen and pelvis CT 07/07/2022. FINDINGS: Mild dependent changes seen at the lung bases. No pneumoperitoneum. No pneumatosis. There is a healing right lateral 10th rib fracture. A 3 cm duodenal diverticulum is again noted. Multiple scattered subcentimeter hypodense lesions again noted within the liver. These are technically too small to characterize but may represent biliary hamartomas or cysts. The gallbladder remains mildly distended. No gallbladder wall thickening or gallstones identified. Normal caliber common bile duct. The pancreas, spleen, adrenal glands, and kidneys are unremarkable. No ureteral stones. No hydronephrosis. Mild bilateral perinephric edema remains unchanged. The main portal vein is patent. Normal caliber abdominal aorta. No retroperitoneal lymphadenopathy. No pelvic free fluid or pelvic lymphadenopathy. The bladder is unremarkable. No bowel wall thickening or obstruction. Normal appendix. A few colonic diverticula. No evidence for acute diverticulitis. There is a tiny fat-containing umbilical hernia. IMPRESSION: 1. No bowel wall thickening or obstruction. 2. Normal appendix. 3. Mildly distended gallbladder, unchanged. No gallbladder wall thickening. 4. A healing right lateral 10th rib fracture. No acute rib fractures identified. 5. Colonic diverticulosis. No evidence for acute diverticulitis.
--- NOTE | 2022-08-22 13:52 | History & Physical Report ---
Date of Service August 22, 2022 Assessment & Plan (1) Abdominal pain: Plan: - Admit for observation - General Surgery consulted for possible cholangitis- Abd CT is negatie for gallbladder involvement currently, afebrile, no WBC - Hx of diarrhea possibly gallbladder - Last admission underwent HIDA and gallbladder U/S which were negative - Will check MRCP today per gen surg - Pain control will likely improve with reduction of anxiety - Guiac stools and Check stool studies with diarrhea - Difficulty with urination possible related to routine use of benadryl HS for sleep with anticholingergic properties. Will continue hydration with NSS at 80ml/hr while NPO. - UA is negative for acute infection, follow culture. Strict I/Os, monitor for urine retention with bladder scans. (2) Diarrhea: Plan: - Check stool studies as above, hemmocult stools (3) Alcohol abuse: Plan: - Hx of such, last drink was 50 days ago, current resident of [facility] (4) Tobacco abuse: Plan: - nicotine patch ordered, typically smokes half a pack daily for many years - Cessation encouraged (5) MACKENZIE (generalized anxiety disorder): Plan: - Hx of such, continue clonidine HS for anxiety, will give lorazepam IV 0.5 mg x 1 here now with significant anxiety - Pt follows with counselor, is participating in group at [facility] on daily basis - Consider psych consult, denies suicidal or homicidal ideation DVT ppx: socorro mckee CODE: Full Dispo: From [facility], to assist with dc planning, likely to remain in the hospital x 1-2 days History of Present Illness Chief Complaint: Abdominal pain Primary Care Provider: NO PCP This is a 47-year-old male with PMHx of ADD, anxiety, history of alcohol withdrawal seizures, alcohol abuse and tobacco abuse presents with abdominal pain. He was recently here for admission from 07/07/2022 to 07/09/2022 for similar complaints including abdominal pain where he was worked up with HIDA scan which was negative. He had an ultrasound of the gallbladder which showed sludge, no pericholecystic fluid, no dilation of common bile duct and it was thought that he had anxiety contributing to abdominal pain at that point time. The patient is currently a resident of [facility] for alcohol rehab and last drink was 50 days ago. The patient is shaking and extremely anxious during my visit saying things like "I think I'm going to . I'm paying for all the bad things I've done." He reports worsening abdominal pain over the past week. It is central abdominal pain near his belly button, and does not radiate. He cannot say if it is worse with eating and drinking, but every time he does attempt to have something by mouth, it is followed by a bout of diarrhea. He is having 4-5 diarrhea bouts daily, which are loose and dark brown. Denies tarry or bloody BM. He admits to nausea but no vomiting. Pt notes feeling like it is difficult to start urinating recently, and grover when he goes. Pt denies hematuria but reports his urine appears dark today. Pt feels like he does empty his bladder. Pt notes sweats, denies fever or chills, but thinks sweats are due to his anxiety. He does not take medication for anxiety. Pt has been attending daily groups and participating in discussions with counselor for his rehab. Pt expresses that he is very afraid of being here, does not like multiple people seeing him for the same reason. Pt is agreeable to admission. Allergies Allergy/AdvReac Type Severity Reaction Status Date / Time No Known Allergies Allergy Unverified 07/07/22 19:07 Home Medications Medication Instructions Recorded Confirmed Type cyanocobalamin (vitamin B-12) 1,000 mcg PO DAILY 07/07/22 08/22/22 History 1,000 mcg tablet (Vitamin B-12) multivitamin 1 tab PO DAILY 07/07/22 08/22/22 History thiamine HCl (vitamin B1) 100 mg 100 mg PO DAILY 07/07/22 08/22/22 History tablet acetaminophen 325 mg capsule 650 mg PO TID PRN pain or fever 08/22/22 08/22/22 History (Tylenol) clonidine HCl 0.1 mg tablet 0.1 mg PO HS 08/22/22 08/22/22 History diphenhydramine HCl 50 mg capsule 50 mg PO HS PRN Sleep 08/22/22 08/22/22 History ibuprofen 200 mg tablet 200 mg PO DAILY PRN Pain 08/22/22 08/22/22 History melatonin 10 mg tablet 10 mg PO HS PRN Sleep 08/22/22 08/22/22 History Past Med/Surg History Medical History (Updated 08/22/22 @ 15:07 by Iman Talavera PA-C) ADD (attention deficit disorder) Alcohol abuse MACKENZIE (generalized anxiety disorder) Tobacco abuse Surgical History (Updated 08/22/22 @ 13:46 by Iman Talavera PA-C) Hx of knee surgery Family History (Updated 08/22/22 @ 13:47 by Iman Talavera PA-C) Other Alcoholism Diabetes Gallbladder disease Lung cancer Social History Smoking Status: Current every day smoker Cigarettes Per Day: 1.5 PPD; Second Hand Exposure: No; Hx Alcohol Use: Yes Alcohol type: hard liquor Hx Substance Use: No Preferred Language: Brazilian Communication Ability: Effective Asp Net Programmer Required: No Beliefs That Will Affect Care: None marital status: Current Living Situation: Rehab Current Living Situation Comment: [facility] Feels Safe at Home: Yes Assistive Devices: None Review of Systems Review of Systems: Constitutional: As per HPI, No fever or chills Eyes: No diplopia, no worsening or blurred vision ENT: normal hearing, no trouble swallowing Respiratory: No cough, sputum, dyspnea at rest or on exertion Cardiovascular: No chest pain, tightness or palpitations Abdomen: As per HPI, + pain, nausea, and diarrhea, no bloody or dark tarry BM Musculoskeletal: No joint pain, calf pain, swelling Neurologic: No weakness, numbness/tingling, or balance problems Psychiatric: + anxiety , no depression, no suicidal or homicidal ideation Skin: No rash or itch Physical Exam Physical Exam: General: awake, alert, shaking, + extremely anxious Head: Normocephalic, atraumatic ENT: PERRL, EOMI, no pharyngeal exudate, mucous membranes moist Chest: Clear to auscultation, on room air, no adventitious breath sounds Cardiac: Regular rate and rhythm, no murmur, no JVD, normal peripheral pulses, good capillary refill Abdominal: Hyperactive bowel sounds x 4 quadrants, + moderate distension, soft, +tender to palpation over umbilicus with referred pain throughout, no rebound or guarding Extremities: Normal inspection, no peripheral edema or erythema, calfs nontender to palpation Psych: Anxious and tearful mood and affect Neuro: AAO x 3, strength intact bilaterally and rated 5/5, no motor deficits, speech is clear, no peripheral sensory deficits Results & Data Results & Data ([facility]) Vital Signs (Past 12 Hours) Vital Signs Temp Pulse Pulse Resp BP BP Pulse Ox 08/22/22 10:09 73 16 166/97 H 95 08/22/22 09:56 80 16 96 08/22/22 09:06 36.6 C 86 18 152/95 H 96 O2 Del Method 08/22/22 10:09 08/22/22 09:56 08/22/22 09:06 Room Air Laboratory Results 08/22/22 08/22/22 08/22/22 09:53 09:50 09:50 WBC 7.89 RBC 4.34 L Hgb 14.5 Hct 41.8 MCV 96.3 MCH 33.4 MCHC 34.7 RDW Std Deviation 42.3 RDW Coeff of Robby 11.9 Plt Count 266 MPV 11.0 Immature Gran % (Auto) 0.9 Neut % (Auto) 58.9 Lymph % (Auto) 30.8 [place] % (Auto) 6.7 Eos % (Auto) 1.4 Baso % (Auto) 1.3 Neut # (Auto) 4.65 Lymph # (Auto) 2.43 [place] # (Auto) 0.53 Eos # (Auto) 0.11 Baso # (Auto) 0.10 Immature Gran # (Auto) 0.07 H Sodium 138 Potassium 4.7 Chloride 105 Carbon Dioxide 25 Anion Gap 8 BUN 16 Creatinine 0.88 Est Cr Clr Drug Dosing 124.6 Est GFR ( Amer) 117.7 Est GFR (Non-Af Amer) 101.6 BUN/Creatinine Ratio 18.2 Glucose 95 Calcium 9.8 Total Bilirubin 1.2 H AST 16 ALT 19 Alkaline Phosphatase 59 Total Protein 7.7 Albumin 4.5 Globulin 3.2 Albumin/Globulin Ratio 1.4 Lipase 23 Urine Color Dark Yellow Urine Appearance Clear Urine pH 6.0 Ur Specific [place] 1.028 Urine Protein Negative Urine Glucose (UA) Negative Urine Ketones Trace H Urine Blood Negative Urine Nitrite Negative Urine Bilirubin Negative Urine Urobilinogen Negative Ur Leukocyte Esterase Negative Diagnostic Findings Abdomen/Pelvis CT 08/22/22 09:[address] WITH IV CONTRAST CT DOSE: 1027.84 mGycm HISTORY: Generalized abdominal pain. TECHNIQUE: Multiaxial CT images of the abdomen and pelvis were performed following the use of intravenous contrast. A dose lowering technique was utilized adhering to the principles of ALARA. COMPARISON STUDY: Abdomen and pelvis CT 07/07/2022. FINDINGS: Mild dependent changes seen at the lung bases. No pneumoperitoneum. No pneumatosis. There is a healing right lateral 10th rib fracture. A 3 cm duodenal diverticulum is again noted. Multiple scattered subcentimeter hypodense lesions again noted within the liver. These are technically too small to characterize but may represent biliary hamartomas or cysts. The gallbladder remains mildly distended. No gallbladder wall thickening or gallstones identified. Normal caliber common bile duct. The pancreas, spleen, adrenal glands, and kidneys are unremarkable. No ureteral stones. No hydronephrosis. Mild bilateral perinephric edema remains unchanged. The main portal vein is patent. Normal caliber abdominal aorta. No retroperitoneal lymphadenopathy. No pelvic free fluid or pelvic lymphadenopathy. The bladder is unremarkable. No bowel wall thickening or obstruction. Normal appendix. A few colonic diverticula. No evidence for acute diverticulitis. There is a tiny fat-containing umbilical hernia. IMPRESSION: 1. No bowel wall thickening or obstruction. 2. Normal appendix. 3. Mildly distended gallbladder, unchanged. No gallbladder wall thickening. 4. A healing right lateral 10th rib fracture. No acute rib fractures identified. 5. Colonic diverticulosis. No evidence for acute diverticulitis. ACT 112: Negative or not required by law. Electronically signed by: Ben Del Valle M.D. 08/22/2022 11:35 AM Code Status & VTE Plan Code Status Full code- discussed with the patient at bedside Supervising Physician Co-Signing Physician Notes I have seen and examined the patient and have discussed the case with the provider above. I agree with the assessment and plan as stated with the following exceptions. The patient is a 47-year-old man presenting with abdominal pain and diarrhea for the past week. He has a history of alcohol abuse and presents from [facility] where he has been sober for 50 days. He denies a history of anxiety but is overly anxious on exam today. He reports not having a history of anxiety and therefore has no coping skills to deal with extreme anxiety despite rehab. It appears he is on clonidine nightly for anxiety. He was at this institution in June for abdominal pain and at that time it was unclear if his abdominal pain was due to cholecystitis. A HIDA scan was ordered and surgery was able to see the patient. An ultrasound of the gallbladder revealed some sludge but no pericholecystic fluid and no dilation of the common bile duct. At that time his pain was in the right upper quadrant which is also present now HIDA scan at that time ruled out any occult acute cholecystitis or CBD pathology. He was able to tolerate oral food and was sent home without any antibiotics. Today he has a similar presentation. He has been able to tolerate p.o. and after telling me that he has significant pain and issues with diarrhea in response to eating food he told me he is starving and wants to eat soon as possible. He is currently waiting for an MRCP and is n.p.o. as a result. On physical exam he is a well-nourished well-developed man who is extremely anxious. He has no conversational dyspnea or increased respiratory distress. Vital signs are stable and he is oxygenating well on room air. Blood pressure is within normal limits. His physical exam is unremarkable aside from his abdomen. On abdominal palpation he is very quick to jump and appears to be somewhat malingering. He is tensing his abdomen voluntarily despite multiple attempts to get him to relax. Any discomfort seems to be more localized in the right upper quadrant area from as far as I can tell. There is no distention present. Skin is warm and dry. There is no gross neurological or musculoskeletal deficits. Work-up today reveals a normal CBC with no elevation of white count. A normal CMP with no elevated liver enzymes or hyperbilirubinemia that might indicate obstruction of the common bile duct. He has a urinalysis which is negative and a COVID is negative. An abdomen pelvis CT with IV contrast was performed re vealing no bowel wall thickening or obstruction normal appendix, a mildly distended gallbladder that is unchanged from prior imaging with no gallbladder wall wall thickening, a healing right lateral 10th rib fracture and colonic diverticulosis. Surgery was able to see the patient and he is not a candidate for any operative procedures at this time. Will admit him to the hospital for pain control and work-up of his diarrhea. MRCP pending. We will monitor his eating and symptoms as described and psych consult has been ordered for anxiety that is extreme. He also is demonstrating possible cluster B behaviors. For example, right after I walked in the door and introduced myself, he told me he only wanted me to take care of him and no one else because he just didn't trust anyone else. I have never met this man before. Cont additional plan as outlined above. Glenn, DO
[2022-08-22] MEDS ORDERED: LORazepam 1 MG/1 ML SYR IV STA (14:22)
[2022-08-22] MEDS ORDERED: MoRPHine SULFATE 4 MG/ML 1 ML CARP\\VIAL IV STA (14:22)
[2022-08-22] MEDS ORDERED: NICOTINE 21 MG/24 HR TDSY TD ONE (15:08)
[2022-08-22] MEDS ORDERED: ONDANSETRON INJ 2 MG/ML 2 ML VIAL IV PRN (16:49)
[2022-08-22] MEDS ORDERED: SODIUM CHLORIDE 0.9% 1000ML 1,000 ML IV SCH (16:49)
[2022-08-22] MEDS ORDERED: SODIUM CHLORIDE 0.9% 500 ML IV SCH (16:49)
--- NOTE | 2022-08-22 16:53 | Magnetic Resonance Report ---
MR MRCP CLINICAL HISTORY: Abd pain, eval gallbladder, hx normal HIDA TECHNIQUE: Multiplanar multisequence MR images of the abdomen were obtained, as per MRCP protocol. . COMPARISON: Comparison is made to CT abdomen pelvis 08/22/2022 FINDINGS: Lower chest: No acute abnormality Liver: Unremarkable. No focal lesions are seen. Gallbladder and biliary tree: The gallbladder is mildly distended appearance however there is no evid ence of pericholecystic fluid or gallbladder wall thickening. No intra- or extrahepatic biliary ducta l dilation. Pancreas: Unremarkable, no focal lesions. Spleen: Unremarkable. Adrenals: Unremarkable. Kidneys and ureters: Perinephric stranding is noted bilaterally. Bowel: Diverticulosis is seen without evidence of diverticulitis. Lymph nodes Retroperitoneal: Unremarkable. Mesenteric: Unremarkable. Peritoneum: Normal Vessels: Unremarkable. Abdominal wall: Unremarkable. Bones: Unremarkable. IMPRESSION: No evidence of cholecystitis. The common bile duct is not distended and there is no filling defect to suggest choledocholithiasis. ACT 112: Negative or not required by law. Electronically signed by: Obie Cruz M.D. 08/22/2022 4:52 PM
[2022-08-22] MEDS: NICOTINE 21 MG/24 HR TDSY TD SCH (16:59)
[2022-08-22] MEDS ORDERED: KETOROLAC TROMETHAMINE 15 MG/ML VIAL IV ONE (17:12)
[2022-08-22] MEDS ORDERED: MELATONIN 3 MG TAB PO PRN (17:15)
[2022-08-22] MEDS: KETOROLAC TROMETHAMINE 15 MG/ML VIAL IV PRN (21:09)
[2022-08-22] MEDS: cloNIDine HCL 0.1 MG TAB PO SCH (21:10)
[2022-08-23] MEDS ORDERED: SODIUM CHLORIDE 0.9% 1000ML 1,000 ML IV ONE (00:57)
[2022-08-23] MEDS: KETOROLAC TROMETHAMINE 15 MG/ML VIAL IV PRN ×3 (05:58→18:29)
[2022-08-23 08:35] LABS: Hematocrit (blood only) 39.1 % (40.1-51.0); Hemoglobin 13.6 g/dl (14.0-18.0); Mean Corpuscular Hemoglobin 33.7 pg (25.0-34.0); Mean Corpuscular Hgb Conc 34.8 g/dL (32.0-36.0); Mean Platelet Volume 11.1 fL (9.4-12.4); Platelet Count 225 K/uL (130-400); RDW Coefficient of Variation 11.7 % (11.5-14.5); RDW Standard Deviation 41.7 fL (36.4-46.3); Red Blood Count 4.03 M/uL (4.63-6.08); White Blood Count 7.74 K/ul (4.8-10.8)
[2022-08-23] MEDS: NICOTINE 21 MG/24 HR TDSY TD SCH (08:46)
[2022-08-23] MEDS: MULTIVITAMIN TAB PO SCH (08:46)
[2022-08-23] MEDS: CYANOCOBALAMIN (B-12) 500 MCG TABLET PO SCH (08:46)
[2022-08-23] MEDS: THIAMINE HCL 100 MG TAB PO SCH (08:46)
[2022-08-23] MEDS: ACETAMINOPHEN 325 MG TAB PO PRN ×3 (08:48→17:59)
[2022-08-23 09:03] LABS: Albumin Level 3.7 gm/dl (3.4-5.0); BUN Creatinine Ratio 16.7 (10-20); Bilirubin Direct 0.2 mg/dl (0-0.2); Bilirubin,Total 1.3 mg/dl (0.2-1.0); Calcium 8.5 mg/dl (8.5-10.1); Creatinine Clr Calc Pharmacy 140.9 ml/min; Est GFR (African American) 123.7 ml/min; Est GFR (Non-African American) 106.7 ml/min; Potassium 4.3 mmol/L (3.5-5.1); Total Protein 6.6 gm/dl (6.0-8.3)
[2022-08-23] MEDS: busPIRone 5 MG TAB PO SCH ×2 (12:30→20:22)
[2022-08-23] MEDS: oxyCODONE HCL IR 5 MG TAB (IMMEDIATE RELEASE) PO PRN ×2 (13:17→20:53)
--- NOTE | 2022-08-23 13:38 | Surgery Progress Note ---
Date of Service August 23, 2022 Assessment & Plan (1) Abdominal pain: Plan: pt is a47 year-old male who was admitted to hospital for possible cholecystitis, with abdominal pain, pt is doing better, no fever, MRCP- negative for cholecystitis, Plan, no surgery indication now, conservative treatment, will F/u, Plan 47 year-old male with history of anxiety , ADD, alcohol abuse for 30+ years currently in alcohol treatment facility and sober for 50 days presented to ED with complaint of increasing abdominal pain and postprandial diarrhea. He was admitted here at [facility] in June and had ct scan, US , and HIDA scan showing mild gallbladder distention and sludge with no stones and no evidence of acute cholecystitis. He is extremely anxious and is concerned there is something wrong. Given history of alcohol abuse, question of GI bleeding 3 years ago with admission at a hospital in [place], diarrhea, increasing abdominal distention no leukocytosis, no fever, CT scan with mild gallbladder distention unchanged from previously would recommend hospitalist admit for further work-up , possible pysch consult, and MRCP. Unsure if he is seeking pain management given his history of narcotic abuse? Discussed with Dr. Munson who agrees with above. Admission and Anticipated Discharge Date Admission Date: August 22, 2022 Supervising Physician Co-Signing Physician Notes I have seen and examined the patient and have discussed the case with the provider above. I agree with the assessment and plan as stated with the following exceptions. The patient is a 47-year-old man presenting with abdominal pain and diarrhea for the past week. He has a history of alcohol abuse and presents from [facility] where he has been sober for 50 days. He denies a history of anxiety but is overly anxious on exam today. He reports not having a history of anxiety and therefore has no coping skills to deal with extreme anxiety despite rehab. It appears he is on clonidine nightly for anxiety. He was at this institution in June for abdominal pain and at that time it was unclear if his abdominal pain was due to cholecystitis. A HIDA scan was ordered and surgery was able to see the patient. An ultrasound of the gallbladder revealed some sludge but no pericholecystic fluid and no dilation of the common bile duct. At that time his pain was in the right upper quadrant which is also present now HIDA scan at that time ruled out any occult acute cholecystitis or CBD pathology. He was able to tolerate oral food and was sent home without any antibiotics. Today he has a similar presentation. He has been able to tolerate p.o. and after telling me that he has significant pain and issues with diarrhea in response to eating food he told me he is starving and wants to eat soon as possible. He is currently waiting for an MRCP and is n.p.o. as a result. On physical exam he is a well-nourished well-developed man who is extremely anxious. He has no conversational dyspnea or increased respiratory distress. Vital signs are stable and he is oxygenating well on room air. Blood pressure is within normal limits. His physical exam is unremarkable aside from his abdomen. On abdominal palpation he is very quick to jump and appears to be somewhat malingering. He is tensing his abdomen voluntarily despite multiple attempts to get him to relax. Any discomfort seems to be more localized in the right upper quadrant area from as far as I can tell. There is no distention present. Skin is warm and dry. There is no gross neurological or musculoskeletal deficits. Work-up today reveals a normal CBC with no elevation of white count. A normal CMP with no elevated liver enzymes or hyperbilirubinemia that might indicate obstruction of the common bile duct. He has a urinalysis which is negative and a COVID is negative. An abdomen pelvis CT with IV contrast was performed revealing no bowel wall thickening or obstruction normal appendix, a mildly distended gallbladder that is unchanged from prior imaging with no gallbladder wall wall thickening, a healing right lateral 10th rib fracture and colonic diverticulosis. Surgery was able to see the patient and he is not a candidate for any operative procedures at this time. Will admit him to the hospital for pain control and work-up of his diarrhea. MRCP pending. We will monitor his eating and symptoms as described and psych consult has been ordered for anxiety that is extreme. He also is demonstrating possible cluster B behaviors. For example, right after I walked in the door and introduced myself, he told me he only wanted me to take care of him and no one else because he just didn't trust anyone else. I have never met this man before. Cont additional plan as outlined above. Odem, DO Subjective F/u possible cholecystitis, pt is doing better, some lower abdominal , pt denies RUQ pain, no nausea, no vomiting, no fever, Physical Exam Constitutional: WD/WN, vitals as above Eyes: PERRL, conjunctivae normal, anicteric sclerae Neck: trachea midline, no thyromegaly Respiratory: normal respiratory effort, lungs clear to auscultation Cardiovascular: RRR, no murmur, no edema Gastrointestinal (Abdomen): soft, mild tenderness at periumbilical area, no rebound pain, no distend, BS +, Neurologic: patellar DTR's 2+ bilat, sensation intact Psychiatric: A+Ox3, euthymic affect Results & Data ([place]) Vital Signs (Past 12 Hours) Vital Signs Temp Pulse Resp BP Pulse Ox O2 Del Method 08/23/22 07:49 36.6 C 69 20 161/97 H 95 Room Air Laboratory Results Abnormal lab results 08/23/22 08/23/22 Range/Units 07:58 07:58 RBC 4.03 L (4.63-6.08) M/uL Hgb 13.6 L (14.0-18.0) g/dl Hct 39.1 L (40.1-51.0) % Chloride 108 H (98-107) mmol/L Total Bilirubin 1.3 H (0.2-1.0) mg/dl Diagnostic Findings MR MRCP CLINICAL HISTORY: Abd pain, eval gallbladder, hx normal HIDA TECHNIQUE: Multiplanar multisequence MR images of the abdomen were obtained, as per MRCP protocol. . COMPARISON: Comparison is made to CT abdomen pelvis 08/22/2022 FINDINGS: Lower chest: No acute abnormality Liver: Unremarkable. No focal lesions are seen. Gallbladder and biliary tree: The gallbladder is mildly distended appearance however there is no evidence of pericholecystic fluid or gallbladder wall thickening. No intra- or extrahepatic biliary ductal dilation. Pancreas: Unremarkable, no focal lesions. Spleen: Unremarkable. Adrenals: Unremarkable. Kidneys and ureters: Perinephric stranding is noted bilaterally. Bowel: Diverticulosis is seen without evidence of diverticulitis. Lymph nodes Retroperitoneal: Unremarkable. Mesenteric: Unremarkable. Peritoneum: Normal Vessels: Unremarkable. Abdominal wall: Unremarkable. Bones: Unremarkable. IMPRESSION: No evidence of cholecystitis. The common bile duct is not distended and there is no filling defect to suggest choledocholithiasis. ACT 112: Negative or not required by law.
[2022-08-23] MEDS ORDERED: TAMSULOSIN HCL 0.4 MG CAP PO ONE (16:14)
--- NOTE | 2022-08-23 16:44 | Hospitalist Progress Note ---
Date of Service August 23, 2022 Assessment & Plan (1) Abdominal pain: Plan: - General Surgery consulted for possible cholangitis- Abd CT is negative for gallbladder involvement currently, afebrile, no WBC - no surgical indication, conservative treatment - Last admission underwent HIDA and gallbladder U/S which were negative - MRCP - No evidence of cholecystitis. The common bile duct is not distended and there is no filling defect to suggest choledocholithiasis - Pain control will likely improve with reduction of anxiety - Guiac stools and Check stool studies with diarrhea - no further episodes today - Difficulty with urination possible related to routine use of benadryl HS for sleep with anti-cholingergic properties -> improved with holding benadryl. Continue bladder scans (2) Diarrhea: Plan: - Check stool studies as above, hemmocult stools -> no episodes of diarrhea since yesterday (3) Alcohol abuse: Plan: - Hx of such, last drink was 50 days ago, current resident of [facility] (4) Tobacco abuse: Plan: - nicotine patch ordered, typically smokes half a pack daily for many years - Cessation encouraged (5) MACKENZIE (generalized anxiety disorder): Plan: - Hx of such, continue clonidine HS for anxiety, will give lorazepam IV 0.5 mg x 1 here now with significant anxiety - Pt follows with counselor, is participating in group at [facility] on daily b asis - Denies suicidal or homicidal ideation - Added Buspar 5mg BID. Consider addition of PRN hydralazine if continues DVT ppx: brandon mckees CODE: Full Dispo: From [facility], to assist with dc planning, likely to remain in the hospital x 1-2 days Admission and Anticipated Discharge Date Admission Date: August 22, 2022 Supervising Physician Co-Signing Physician Notes This 47-year-old male was examined at bedside for abdominal pain, at prese ntation was mainly at upper abdomen and lower abdomen per him, MRCP and CT abdomen pelvis reviewed/no acute findings, labs WNL, vitals fairly stable, patient complains of lower belly pain with frequency of urination and decreased appetite for the last 2 days APPOINTMENT CLERK, will add tamsulosin and see if that helps,will get psa, will add BuSpar 5 mg twice daily for possible anxiety, if with no improvement will uptitrate BuSpar and consider psychiatry consult. Patient was examined at bedside, appeared to be in mild distress, appeared to be in pain, on room air, vitals stable, on abdominal examination nontender at epigastric and right upper quadrant region, tender at epigastric region, genital exam performed, no lesions identified. Rest of the examination as above. I have seen and examined the patient and have discussed the case with the provider above. I agree with the assessment and plan as stated. Subjective Seen and examined in 379 bed 2 in follow-up for abdominal pain, anxiety. Patient continues to be extremely anxious, endorsing lightheadedness, restlessness and vague abdominal pain. Denies any nausea or vomiting. No chest pain or shortness of breath. No dysuria, diarrhea or constipation. Review of Systems Review of Systems: At least ten systems reviewed and negative except as noted in the HPI. Physical Exam Physical Exam: Gen: WD/WN, NAD, lying in bed, A&Ox3. + extremely anxious HEENT: Normocephalic, atraumatic, conjunctivae moist, sclerae anicteric, mucous membranes moist Lung: Clear to Auscultation bilaterally, no wheezes/rales/rhonchi Heart: Regular rate, regular rhythm, no murmurs, rubs, or gallops Abdomen: Soft, diffuse TTP, ND +BS x 4 Extremities: no edema Skin: Warm, no rash Results & Data Results & Data ([facility]) Vital Signs (Past 12 Hours) Vital Signs Temp Pulse Resp BP Pulse Ox O2 Del Method 08/23/22 16:20 36.6 C 73 20 147/95 H 94 Room Air 08/23/22 07:49 36.6 C 69 20 161/97 H 95 Room Air Laboratory Results Short CBC 08/23/22 Range/Units 07:58 WBC 7.74 (4.8-10.8) K/ul Hgb 13.6 L (14.0-18.0) g/dl Hct 39.1 L (40.1-51.0) % Plt Count 225 (130-400) K/uL BMP 08/23/22 07:58 Sodium 137 Potassium 4.3 Chloride 108 H Carbon Dioxide 24 BUN 13 Creatinine 0.78 Glucose 91 Calcium 8.5 Liver Function 08/23/22 Range/Units 07:58 Total Bilirubin 1.3 H (0.2-1.0) mg/dl Direct Bilirubin 0.2 (0-0.2) mg/dl AST 15 (13-39) U/L ALT 15 (7-52) U/L Alkaline Phosphatase 52 (34-104) U/L Albumin 3.7 (3.4-5.0) gm/dl Diagnostic Findings Abdomen/Pelvis CT 08/22/22 09:[address] WITH IV CONTRAST CT DOSE: 1027.84 mGycm HISTORY: Generalized abdominal pain. TECHNIQUE: Multiaxial CT images of the abdomen and pelvis were performed following the use of intravenous contrast. A dose lowering technique was utilized adhering to the principles of ALARA. COMPARISON STUDY: Abdomen and pelvis CT 07/07/2022. FINDINGS: Mild dependent changes seen at the lung bases. No pneumoperitoneum. No pneumatosis. There is a healing right lateral 10th rib fracture. A 3 cm duodenal diverticulum is again noted. Multiple scattered subcentimeter hypodense lesions again noted within the liver. These are technically too small to characterize but may represent biliary hamartomas or cysts. The gallbladder remains mildly distended. No gallbladder wall thickening or gallstones identified. Normal caliber common bile duct. The pancreas, spleen, adrenal glands, and kidneys are unremarkable. No ureteral stones. No hydronephrosis. Mild bilateral perinephric edema remains unchanged. The main portal vein is patent. Normal caliber abdominal aorta. No retroperitoneal lymphadenopathy. No pelvic free fluid or pelvic lymphadenopathy. The bladder is unremarkable. No bowel wall thickening or obstruction. Normal appendix. A few colonic diverticula. No evidence for acute diverticulitis. There is a tiny fat-containing umbilical hernia. IMPRESSION: 1. No bowel wall thickening or obstruction. 2. Normal appendix. 3. Mildly distended gallbladder, unchanged. No gallbladder wall thickening. 4. A healing right lateral 10th rib fracture. No acute rib fractures identified. 5. Colonic diverticulosis. No evidence for acute diverticulitis. ACT 112: Negative or not required by law. Electronically signed by: Ben Del Valle M.D. 08/22/2022 11:35 AM Cholangiopancreatography MRI 08/22/22 13:57 MR MRCP CLINICAL HISTORY: Abd pain, eval gallbladder, hx normal HIDA TECHNIQUE: Multiplanar multisequence MR images of the abdomen were obtained, as per MRCP protocol. . COMPARISON: Comparison is made to CT abdomen pelvis 08/22/2022 FINDINGS: Lower chest: No acute abnormality Liver: Unremarkable. No focal lesions are seen. Gallbladder and biliary tree: The gallbladder is mildly distended appearance however there is no evidence of pericholecystic fluid or gallbladder wall thickening. No intra- or extrahepatic biliary ductal dilation. Pancreas: Unremarkable, no focal lesions. Spleen: Unremarkable. Adrenals: Unremarkable. Kidneys and ureters: Perinephric stranding is noted bilaterally. Bowel: Diverticulosis is seen without evidence of diverticulitis. Lymph nodes Retroperitoneal: Unremarkable. Mesenteric: Unremarkable. Peritoneum: Normal Vessels: Unremarkable. Abdominal wall: Unremarkable. Bones: Unremarkable. IMPRESSION: No evidence of cholecystitis. The common bile duct is not distended and there is no filling defect to suggest choledocholithiasis. ACT 112: Negative or not required by law. Electronically signed by: Obie Cruz M.D. 08/22/2022 4:52 PM
[2022-08-23] MEDS: cloNIDine HCL 0.1 MG TAB PO SCH (20:22)
[2022-08-23 21:41] LABS: Adenovirus F 40/41 PCR Not Detected (NotDetected); Astrovirus PCR Not Detected (NotDetected); Campylobacter PCR Not Detected (NotDetected); Cryptosporidium PCR Not Detected (NotDetected); Cyclospora cayetanensis PCR Not Detected (NotDetected); Entamoeba histolytica PCR Not Detected (NotDetected); Enteroaggregative E.coli(EAEC) Not Detected (NotDetected); Enteropathogenic E.coli (EPEC) Not Detected (NotDetected); Enterotoxigenic E.coli (ETEC) Not Detected (NotDetected); Giardia lamblia PCR Not Detected (NotDetected); Norovirus GI/GII PCR Not Detected (NotDetected); Plesiomonas shigelloides PCR Not Detected (NotDetected); Rotavirus A PCR Not Detected (NotDetected); Salmonella PCR Not Detected (NotDetected); Sapovirus PCR Not Detected (NotDetected); Shiga-like Toxin E.coli (STEC) Not Detected (NotDetected); Shigella/Enteroinvasive E.coli Not Detected (NotDetected); Vibrio cholerae PCR Not Detected (NotDetected); Vibrio species PCR Not Detected (NotDetected); Yersinia enterocolitica PCR Not Detected (NotDetected)
[2022-08-24] MEDS: ACETAMINOPHEN 325 MG TAB PO PRN ×2 (00:50→08:38)
[2022-08-24] MEDS: KETOROLAC TROMETHAMINE 15 MG/ML VIAL IV PRN ×2 (00:51→08:39)
[2022-08-24 07:12] LABS: BUN Creatinine Ratio 15.4 (10-20); Calcium 8.9 mg/dl (8.5-10.1); Creatinine Clr Calc Pharmacy 140.9 ml/min; Est GFR (African American) 123.7 ml/min; Est GFR (Non-African American) 106.7 ml/min
[2022-08-24 07:15] LABS: Free PSA % 39.1 %; Prostate SpecificAg Diagnostic 0.281 ng/ml (0-4)
[2022-08-24 07:24] LABS: Ferritin 27.6 ng/ml (8-388)
[2022-08-24] MEDS: MULTIVITAMIN TAB PO SCH (08:40)
[2022-08-24] MEDS: NICOTINE 21 MG/24 HR TDSY TD SCH (08:40)
[2022-08-24] MEDS: CYANOCOBALAMIN (B-12) 500 MCG TABLET PO SCH (08:40)
[2022-08-24] MEDS: busPIRone 5 MG TAB PO SCH (08:40)
[2022-08-24] MEDS: THIAMINE HCL 100 MG TAB PO SCH (08:40)
[2022-08-24] MEDS ORDERED: TAMSULOSIN HCL 0.4 MG CAP PO SCH (09:00)
--- NOTE | 2022-08-24 11:06 | Surgery Progress Note ---
Date of Service August 24, 2022 Assessment & Plan (1) Abdominal pain: Plan 47 year-old male with history of anxiety , ADD, alcohol abuse for 30+ years currently in alcohol treatment facility and sober for 50 days presented to ED with complaint of increasing abdominal pain and postprandial diarrhea. He was admitted here at [facility] in June and had ct scan, US , and HIDA scan showing mild gallbladder distention and sludge with no stones and no evidence of acute cholecystitis. MRCP negative for cholecystitis or biliary obstruction. 08/24/2022: he is afebrile, no leukocytosis, tolerated diet yesterday ? pain seeking per nursing staff as he is comfortable when he does not see nursing staff or providers but then looks in physical pain and very anxious when he sees nursing staff or providers He abdomen is benign and stool studies negative No surgical intervention is required or recommended at this time continue medical management consider psych consult our services signing off Dr. Munson has seen and examined pt, agrees with above Admission and Anticipated Discharge Date Admission Date: August 22, 2022 Subjective upon entering room patient starts looking very anxious and says he is not eating and having pain again. Still very anxious when asked any question but per nursing he is comfortable when not being evaluated but once someone comes in he is anxious and stating he is in pain tolerated diet yesterday Physical Exam Constitutional: WD/WN, vitals as above cooperative; no acute distress, not ill appearing and not frail appearing Gastrointestinal (Abdomen): Inspection/Auscultation: abdomen normal to inspection; abdomen not distended Percussion/Palpation: + abdomen tender (periumbilical) and abdomen soft; no guarding and abdomen not rigid Skin: no rashes, warm and dry no jaundice Psychiatric: Orientation: alert and oriented x 3 Affect: + anxious affect Results & Data ([facility]) Vital Signs (Past 12 Hours) Vital Signs Temp Pulse Resp BP Pulse Ox O2 Del Method 08/24/22 08:18 36.6 C 70 18 158/102 H 93 Room Air Laboratory Results 08/24/22 08/24/22 08/23/22 Range/Units 05:58 05:58 19:41 Sodium 136 (136-145) mmol/L Potassium 4.0 (3.5-5.1) mmol/L Chloride 106 (98-107) mmol/L Carbon Dioxide 24 (21-32) mmol/L Anion Gap 6 (3-11) BUN 12 (6-23) mg/dl Creatinine 0.78 (0.6-1.4) mg/dl Est Cr Clr Drug Dosing 140.9 ml/min Est GFR ( Amer) 123.7 ml/min Est GFR (Non-Af Amer) 106.7 ml/min BUN/Creatinine Ratio 15.4 (10-20) Glucose 92 (70-99(Fasting)) mg/dl Calcium 8.9 (8.5-10.1) mg/dl Magnesium 2.0 (1.7-2.4) mg/dl Ferritin 27.6 (8-388) ng/ml Prostate Specific Ag 0.281 (0-4) ng/ml Free PSA 0.11 (0-2.0) ng/ml % Free PSA 39.1 % Stl C. cayetanensis PCR Not Detected (NotDetected) Stool Rotavirus A PCR Not Detected (NotDetected) Stl Adenov F 40/41 PCR Not Detected (NotDetected) Stool Astrovirus (PCR) Not Detected (NotDetected) Stool Campylobacter PCR Not Detected (NotDetected) Stl C. diff Tox B Gene (Neg) Stool Cryptosporidium PCR Not Detected (NotDetected) Stl E.coli Shiga Tox PCR Not Detected (NotDetected) Stl Enterotoxigenic E PCR Not Detected (NotDetected) Stool EPEC (PCR) Not Detected (NotDetected) Stool EAEC (PCR) Not Detected (NotDetected) Stl E. histolytica PCR Not Detected (NotDetected) Stool Giardia Lamblia PCR Not Detected (NotDetected) Stool Salmonella PCR Not Detected (NotDetected) Stool Sapovirus (PCR) Not Detected (NotDetected) Stl P. shigelloides PCR Not Detected (NotDetected) Stl Shigella/EIEC PCR Not Detected (NotDetected) St Y.enterocolitica PCR Not Detected (NotDetected) Stool Vibrio (PCR) Not Detected (NotDetected) Stl Vibrio cholerae PCR Not Detected (NotDetected) Stl Norovirus GI/GII PCR Not Detected (NotDetected) 08/23/22 Range/Units 19:41 Sodium (136-145) mmol/L Potassium (3.5-5.1) mmol/L Chloride (98-107) mmol/L Carbon Dioxide (21-32) mmol/L Anion Gap (3-11) BUN (6-23) mg/dl Creatinine (0.6-1.4) mg/dl Est Cr Clr Drug Dosing ml/min Est GFR ( Amer) ml/min Est GFR (Non-Af Amer) ml/min BUN/Creatinine Ratio (10-20) Glucose (70-99(Fasting)) mg/dl Calcium (8.5-10.1) mg/dl Magnesium (1.7-2.4) mg/dl Ferritin (8-388) ng/ml Prostate Specific Ag (0-4) ng/ml Free PSA (0-2.0) ng/ml % Free PSA % Stl C. cayetanensis PCR (NotDetected) Stool Rotavirus A PCR (NotDetected) Stl Adenov F 40/41 PCR (NotDetected) Stool Astrovirus (PCR) (NotDetected) Stool Campylobacter PCR (NotDetected) Stl C. diff Tox B Gene Negative Cdiff Gene (Neg) Stool Cryptosporidium PCR (NotDetected) Stl E.coli Shiga Tox PCR (NotDetected) Stl Enterotoxigenic E PCR (NotDetected) Stool EPEC (PCR) (NotDetected) Stool EAEC (PCR) (NotDetected) Stl E. histolytica PCR (NotDetected) Stool Giardia Lamblia PCR (NotDetected) Stool Salmonella PCR (NotDetected) Stool Sapovirus (PCR) (NotDetected) Stl P. shigelloides PCR (NotDetected) Stl Shigella/EIEC PCR (NotDetected) St Y.enterocolitica PCR (NotDetected) Stool Vibrio (PCR) (NotDetected) Stl Vibrio cholerae PCR (NotDetected) Stl Norovirus GI/GII PCR (NotDetected)
--- NOTE | 2022-08-24 14:11 | Discharge Summary ---
Date of Service August 24, 2022 Admission HPI Per Admitting Provider This is a 47-year-old male with PMHx of ADD, anxiety, history of alcohol withdrawal seizures, alcohol abuse and tobacco abuse presents with abdominal pain. He was recently here for admission from 07/07/2022 to 07/09/2022 for similar complaints including abdominal pain where he was worked up with HIDA scan which was negative. He had an ultrasound of the gallbladder which showed sludge, no pericholecystic fluid, no dilation of common bile duct and it was thought that he had anxiety contributing to abdominal pain at that point time. The patient is currently a resident of [facility] for alcohol rehab and last drink was 50 days ago. The patient is shaking and extremely anxious during my visit saying things like "I think I'm going to . I'm paying for all the bad things I've done." He reports worsening abdominal pain over the past week. It is central abdominal pain near his belly button, and does not radiate. He cannot say if it is worse with eating and drinking, but every time he does attempt to have something by mouth, it is followed by a bout of diarrhea. He is having 4-5 diarrhea bouts daily, which are loose and dark brown. Denies tarry or bloody BM. He admits to nausea but no vomiting. Pt notes feeling like it is difficult to start urinating recently, and grover when he goes. Pt denies hematuria but reports his urine appears dark today. Pt feels like he does empty his bladder. Pt notes sweats, denies fever or chills, but thinks sweats are due to his anxiety. He does not take medication for anxiety. Pt has been attending daily groups and participating in discussions with counselor for his rehab. Pt expresses that he is very afraid of being here, does not like multiple people seeing him for the same reason. Pt is agreeable to admission. Admission Exam Per Admitting Provider General: awake, alert, shaking, + extremely anxious Head: Normocephalic, atraumatic ENT: PERRL, EOMI, no pharyngeal exudate, mucous membranes moist Chest: Clear to auscultation, on room air, no adventitious breath sounds Cardiac: Regular rate and rhythm, no murmur, no JVD, normal peripheral pulses, good capillary refill Abdominal: Hyperactive bowel sounds x 4 quadrants, + moderate distension, soft, +tender to palpation over umbilicus with referred pain throughout, no rebound or guarding Extremities: Normal inspection, no peripheral edema or erythema, calfs nontender to palpation Psych: Anxious and tearful mood and affect Neuro: AAO x 3, strength intact bilaterally and rated 5/5, no motor deficits, speech is clear, no peripheral sensory deficits Principal Diagnosis anxiety, functional abdominal pain Discharge Exam Gen: WD/WN, NAD, lying in bed, A&Ox3. + extremely anxious HEENT: Normocephalic, atraumatic, conjunctivae moist, sclerae anicteric, mucous membranes moist Lung: Clear to Auscultation bilaterally, no wheezes/rales/rhonchi Heart: Regular rate, regular rhythm, no murmurs, rubs, or gallops Abdomen: Soft, non-tender to palpation, ND +BS x 4 Extremities: no edema Skin: Warm, no rash Discharge Data Allergies Allergy/AdvReac Type Severity Reaction Status Date / Time No Known Allergies Allergy Unverified 07/07/22 19:07 Consultations 08/22/22 12:01 Consult General Surgery Stat 08/22/22 14:02 ED Decision to Admit Stat 08/22/22 16:49 Consult General Surgery Routine Ordered Studies 08/22/22 09:46 CT Abd and Pelvis [CT abd pelvis IV con only] Stat 08/22/22 13:57 MR MRCP Stat Hospital Course (1) Abdominal pain: (2) Diarrhea: (3) Alcohol abuse: (4) Tobacco abuse: (5) MACKENZIE (generalized anxiety disorder): Plan This is a 47-year-old male with PMHx of ADD, anxiety, history of alcohol withdrawal seizures, alcohol abuse and tobacco abuse presents with abdominal pain. He was recently here for admission 2 months ago in June 2022 for similar complaints including abdominal pain where he was worked up with HIDA scan which was negative and ultrasound of the gallbladder which showed sludge, no pericholecystic fluid, no dilation of common bile duct and it was thought that he had anxiety contributing to abdominal pain at that point time. The patient is currently a resident of [facility] for alcohol rehab and last drink was 50 days ago. Presents again with similar abdominal complaints and significant anxiety noted throughout admission. No SI/HI. CT abdominal/pelvis negative for acute changes to gallbladder. Chronic unchanged disease present. MRCP with no evidence of cholecystitis. The common bile duct is not distended and there is no filling defect to suggest choledocholithiasis. General surgery evaluated and no surgical indication. Stool culture negative. Diarrhea has resolved. Urinary retention resolved with discontinuation of Benadryl. Recommend to avoid in future due to anticholinergic properties causing urinary retention. Urinating without difficulty. PSA within normal range. Was started on Buspar therapy with dose increased to 10mg BID due to significant anxiety. Please follow up with primary care provider for further mgmt of anxiety. Recommend therapy. Patient to return to inpatient alcohol rehab at [facility]. Hemodynamically stable at time of discharge. Total Time Total Time Spent Total Time Spent (In Minutes): 45 Discharge Plan Discharge Items Patient Disposition: Drug & Alcohol Rehab Reason For Visit: ABDOMINAL PAIN Discharge Diagnosis: anxiety, functional abdominal pain Activity: Resume your previous activity Non-emergency contact: Primary Care Provider Call non-emergency contact if: you have any medication questions, your symptoms worsen and you have a fever Follow-up/Referrals: PCP,FAITH [Primary Care Provider] - Diet: Regular Addtl Attending Provider Instructions: You were admitted with abdominal pain. On last admission underwent HIDA and gallbladder U/S which were negative On this admission, CT abdominal/pelvis negative for acute changes to gallbladder. Chronic unchanged disease present MRCP with no evidence of cholecystitis. The common bile duct is not distended and there is no filling defect to suggest choledocholithiasis General surgery evaluated and no surgical indication Stool culture negative Urinary retention resolved with discontinuation of Benadryl. Recommend to avoid in future Started Buspar and increased to 10mg BID due to significant anxiety. Please follow up with primary care provider for further mgmt of anxity. Recommend therapy. Has maintained alcohol sobriety for 50 days. Will return to [facility] OTHER INSTRUCTIONS: Seek medical attention if you have: * temperature above 101 * chest pain or trouble breathing * abdominal pain, nausea, vomiting * diarrhea, dark stools or bloody stools * any unanswered questions or concerns Call 911 if symptoms are severe. Please take good care of yourself. Call if you have any questions or problems. You can reach a [facility] hospitalist on duty at [facility] 24 hours a day by calling [phone]. Pending Studies at Discharge: No Stand-Alone Forms: My [facility] Skilled Items Patient informed of condition?: Yes DNR: No Discharge Level of Care: Other Communicable Disease: No Discharge Prognosis: Stable Lines: None Urinary Catheter: No Medications and DC Order Prescriptions: New buspirone 10 mg tablet 10 mg PO BID Qty: 60 0RF Rx Instructions: Take 10mg tab twice a day Continued multivitamin Tablet 1 tab PO DAILY cyanocobalamin (vitamin B-12) [Vitamin B-12] 1,000 mcg Tablet 1,000 mcg PO DAILY thiamine HCl (vitamin B1) 100 mg Tablet 100 mg PO DAILY clonidine HCl 0.1 mg Tablet 0.1 mg PO HS Rx Instructions: For anxiety ibuprofen 200 mg Tablet 200 mg PO DAILY PRN (Reason: Pain) acetaminophen [Tylenol] 325 mg Capsule 650 mg PO TID PRN (Reason: pain or fever) melatonin 10 mg Tablet 10 mg PO HS PRN (Reason: Sleep) Discontinued diphenhydramine HCl [Benadryl] 50 mg Capsule 50 mg PO HS PRN (Reason: Sleep) Admission Data Admit Date/Time: 08/22/22 13:57 Attending Provider: Thomas Ibanez Admit Provider: Cici Greenberg Primary Care Provider: PCP,NO Other Providers: Carolina Galan ; Cici Greenberg ; Antonio Munson ; Beba Mcfadden Other Interventions: Discharge Summary Assessment (RN) Last Done: 08/24/22 14:17 Supervising Physician Co-Signing Physician Notes This 47-year-old male was examined at bedside for abdominal pain, at presentation was mainly at upper abdomen and lower abdomen per him, MRCP and CT abdomen pelvis reviewed/no acute findings, labs WNL, vitals fairly stable, patient complained of lower belly pain with frequency of urination and decreased appetite for the last 2 days [employer]ETING [employer]ORD[employer] ---> tamsulosin trial w/ no relief. When examined with his attention elsewhere i can't appreciate abd tenderness. PSA normal. DC tamsulosin. c/w buspar 10 mg bid, f/u w/ pcp for anxiety mx. Pt seen walking normally to bed from bathroom w/o discomfort when i saw him from outside his room. Patient was examined at bedside, appeared to be in mild distress, appeared to be in pain, on room air, vitals stable, on abdominal examination nontender, genital exam performed, no lesions identified. Rest of the examination as above. I have seen and examined the patient and have discussed the case with the provider above. I agree with the assessment and plan as stated.
[2022-08-24] MEDS ORDERED: busPIRone 5 MG TAB PO SCH (21:00)
== END 2022-08-24 15:08 | disposition alcohol treatment (31) ==
LOC: 3N 08:59 → ED 08:59 → SUATTDRO 13:57 → 3N 16:33